=== PATIENT | female | born 1970 | race African-American/Black ===

== ENCOUNTER → 2016-09-11 | Outpatient (CLI) | payer MEDICAID ==
[2016-09-11 08:55] LABS: ABSOLUTE EOSINOPHILS # (AUTO) 0.1 10^3/uL (0.0-0.6); ABSOLUTE LYMPHOCYTES (AUTO) 1.5 10^3/uL (0.5-4.7); ABSOLUTE MONOCYTES (AUTO) 0.2 10^3/uL (0.1-1.4); ABSOLUTE NEUT (AUTO) 2.6 10^3/uL (1.7-8.2); BASOPHILS % (AUTO) 0.7 % (0-2); EOSINOPHILS % (AUTO) 2.7 % (0-6); HEMATOCRIT 40.2 % (36.0-47.0); HEMOGLOBIN 14.2 g/dL (12.0-15.5); HGB HCT DIFFERENCE 2.4; LYMPHOCYTES % (AUTO) 33.5 % (13-45); MEAN CORPUSCULAR HEMOGLOBIN 27.6 pg (27.0-33.4); MEAN CORPUSCULAR HGB CONC 35.3 g/dL (32.0-36.0); MEAN CORPUSCULAR VOLUME 78 fl (80-97); MONOCYTES % (AUTO) 5.1 % (3-13); RED BLOOD COUNT 5.15 10^6/uL (3.72-5.28); RED CELL DISTRIBUTION WIDTH 13.7 % (11.5-14.0); WHITE BLOOD COUNT 4.6 10^3/uL (4.0-10.5)
[2016-09-11 09:23] LABS: ALANINE AMINOTRANSFERASE 33 U/L (9-52); ALBUMIN 4.6 g/dL (3.5-5.0); ALKALINE PHOSPHATASE 70 U/L (38-126); ANION GAP 13 (5-19); ASPARTATE AMINO TRANSFERASE 23 U/L (14-36); BILIRUBIN,TOTAL 0.9 mg/dL (0.2-1.3); BLOOD UREA NITROGEN 12 mg/dL (7-20); CARBON DIOXIDE 25 mmol/L (22-30); CHLORIDE 102 mmol/L (98-107); CHOLESTEROL 214.56 mg/dL (0-200); CREATININE RESULT 0.72 mg/dL (0.52-1.25); Direct HDL 58 mg/dL (>40); GLUCOSE 146 mg/dL (75-110); POTASSIUM 4.7 mmol/L (3.6-5.0); SODIUM 140.1 mmol/L (137-145); TOTAL PROTEIN 7.5 g/dL (6.3-8.2); TRIGLYCERIDES 50 mg/dL (<150)
[2016-09-11 09:34] LABS: DIRECT LDL 140 mg/dL (<100)
== END ==
LOC: OD 08:14
DX: Z79.899 Other long term (current) drug therapy (principal)
CPT/HCPCS: 36415; 80053; 80061; 83036; 84443; 85025

== ENCOUNTER → 2016-10-26 | Outpatient (CLI) | payer MEDICAID | LOC: WI 08:41 | DX: Z12.31 Encounter for screening mammogram for malignant neoplasm of breast (principal) | CPT/HCPCS: 77063; G0202; 77067 ==

== ENCOUNTER 2017-05-20 10:28 | Inpatient (IN) | payer MEDICAID ==
[2017-05-20] MEDS ORDERED: NORMAL SALINE 1000 ML 1,000 ML IV ONE (11:12)
--- NOTE | 2017-05-20 11:15 | ER Document Report ---
ED Medical Screen (RME) - General Chief Complaint: Doesn't Feel Right Stated Complaint: CONFUSION Time Seen by Provider: 05/20/17 11:11 Mode of Arrival: Wheelchair Information source: Patient, Relative TRAVEL OUTSIDE OF THE [place] IN LAST 30 DAYS: No - HPI Patient complains to provider of: confusion, h/o sepsis Onset: Yesterday - relative says pt. was seen here last year for similar sx's ( confusion) and then was found to be septic and transferred to [facility]. Denies fever - Related Data Allergies/Adverse Reactions: No Known Allergies Allergy (Verified 05/20/17 10:40) Past Medical History - Past Medical History Cardiac Medical History: Reports: Hx Hypertension Endocrine Medical History: Reports: Hx Diabetes Mellitus Type 2 Renal/ Medical History: Denies: Hx Peritoneal Dialysis Past Surgical History: Reports: Hx Hysterectomy Physical Exam - Vital signs Vitals: Temp Pulse Resp BP Pulse Ox 98.6 F 89 20 183/95 H 99 05/20/17 10:40 05/20/17 10:40 05/20/17 10:40 05/20/17 10:40 05/20/17 10:40 Course - Vital Signs Vital signs: Temp Pulse Resp BP Pulse Ox 98.6 F 89 20 183/95 H 99 05/20/17 10:40 05/20/17 10:40 05/20/17 10:40 05/20/17 10:40 05/20/17 10:40
--- NOTE | 2017-05-20 11:49 | RADIOLOGY REPORT (SQ) ---
EXAM DESCRIPTION: CT HEAD WITHOUT COMPLETED DATE/TIME: 05/20/2017 11:38 am REASON FOR STUDY: confusion COMPARISON: None. TECHNIQUE: Axial images acquired through the brain without intravenous contrast. Images reviewed wi th bone, brain and subdural windows. Images stored on PACS. All CT scanners at this facility use dose modulation, iterative reconstruction, and/or weight based d osing when appropriate to reduce radiation dose to as low as reasonably achievable (ALARA). [facility]: Dose Right [facility]: CareDose [facility]: Dose Right [facility]: Teradose 4D [facility]: [employer] RADIATION DOSE: Up-to-date CT equipment and radiation dose reduction techniques were employed. CTDIv ol: 64.6 mGy. DLP: 1292 mGy-cm. mGy. LIMITATIONS: None. FINDINGS: VENTRICLES: Normal size and contour. CEREBRUM: No masses. No hemorrhage. No midline shift. No evidence for acute infarction. Normal gra y/white matter differentiation. No areas of low density in the white matter. CEREBELLUM: No masses. No hemorrhage. No alteration of density. No evidence for acute infarction. EXTRAAXIAL SPACES: No fluid collections. No masses. ORBITS AND GLOBE: No intra- or extraconal masses. Normal contour of globe without masses. CALVARIUM: No fracture. PARANASAL SINUSES: No fluid or mucosal thickening. SOFT TISSUES: No mass or hematoma. OTHER: No other significant finding. IMPRESSION: NORMAL BRAIN CT WITHOUT CONTRAST. EVIDENCE OF ACUTE STROKE: NO. COMMENT: Quality ID # [id number]: Final reports with documentation of one or more dose reduction techniques (e.g., Automated exposure control, adjustment of the mA and/or kV according to patient size, use of iterative reconstruction technique) TECHNICAL DOCUMENTATION: JOB ID: [id number] [employer]- All Rights Reserved
--- NOTE | 2017-05-20 11:55 | RADIOLOGY REPORT (SQ) ---
EXAM DESCRIPTION: CHEST PA/LAT COMPLETED DATE/TIME: 05/20/2017 11:45 am REASON FOR STUDY: confusion COMPARISON: 04/09/2016 EXAM PARAMETERS: NUMBER OF VIEWS: two views TECHNIQUE: Digital Frontal and Lateral radiographic views of the chest acquired. RADIATION DOSE: NA LIMITATIONS: none FINDINGS: LUNGS AND PLEURA: No opacities, masses or pneumothorax. No pleural effusion. MEDIASTINUM AND HILAR STRUCTURES: No masses or contour abnormalities. HEART AND VASCULAR STRUCTURES: Heart normal size. No evidence for failure. BONES: No acute findings. HARDWARE: None in the chest. OTHER: No other significant finding. IMPRESSION: NO SIGNIFICANT RADIOGRAPHIC FINDING IN THE CHEST. TECHNICAL DOCUMENTATION: JOB ID: [id number] [employer]- All Rights Reserved
[2017-05-20 12:33] LABS: APPEARANCE,URINE CLEAR; BILIRUBIN,URINE NEGATIVE (NEGATIVE); GLUCOSE, URINE >=500 mg/dL (NEGATIVE); KETONES,URINE 80 mg/dL (NEGATIVE); LEUKOCYTE ESTERASE,URINE NEGATIVE (NEGATIVE); NITRITE,URINE NEGATIVE (NEGATIVE); PROTEIN,URINE NEGATIVE (NEGATIVE); URINE SPECIFIC GRAVITY 1.026; UROBILINOGEN,URINE NEGATIVE mg/dL (<2.0)
--- NOTE | 2017-05-20 12:54 | ER Document Report ---
ED General - General Chief Complaint: Doesn't Feel Right Stated Complaint: CONFUSION Time Seen by Provider: 05/20/17 11:11 Mode of Arrival: Wheelchair Notes: Patient is here because of changes in her mental function over the past couple of days. Patient says is because she did not take her 6 AM dose of amlodipine and forgot to take it today because she was too busy. Patient says her daughter say that she is "out of it". Patient says her symptoms began today, but the daughter says that she actually started exhibiting these findings a couple of days ago, on Tuesday morning. They say that her conversation is not normal. That she takes a couple of minutes patient denies any headache or loss of consciousness. Her vision has been normal. No headache. Denies any fever. Daughter stated was observed her hands shaking when drinking liquids this morning. Patient's daughters are concerned because they say that she had the same symptoms a year ago and was diagnosed as having pneumonia with sepsis and was transferred from here to [facility] for her care. Patient denies any chest pain, shortness of breath or difficulty breathing, headache, visual changes, etc. Denies nausea, vomiting, or diarrhea. Denies shortness of breath or difficulty breathing. Denies fevers. Patient has a history of insulin-dependent diabetes and takes her medications., But did not take her amlodipine for hypertension this morning. 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 Patient has a small abrasion over the knuckle of her right index finger, PIP joint without significant swelling or deformity. Patient says she fell and last night. She says that she fell the night before and bruised her upper mid forehead. Neither she nor her daughter say that she is having any problems with her balance. TRAVEL OUTSIDE OF THE [place] IN LAST 30 DAYS: No - Related Data Allergies/Adverse Reactions: No Known Allergies Allergy (Verified 05/20/17 10:40) Past Medical History - General Information source: Patient, Relative - Social History Smoking Status: Never Smoker Chew tobacco use (# tins/day): No Frequency of alcohol use: None Drug Abuse: None Family History: Reviewed & Not Pertinent, DM Patient has suicidal ideation: No Patient has homicidal ideation: No - Past Medical History Cardiac Medical History: Reports: Hx Hypertension Endocrine Medical History: Reports: Hx Diabetes Mellitus Type 1, Hx Diabetes Mellitus Type 2 Past Surgical History: Reports: Hx Hysterectomy Review of Systems - Review of Systems Notes: REVIEW OF SYSTEMS: CONSTITUTIONAL : Denies fever. Head shakes this morning, like fine tremor as described by daughters. EENT: Denies eye, ear, nose or mouth or throat pain or other symptoms. CARDIOVASCULAR: Denies chest pain. RESPIRATORY: Denies cough, chest congestion, or shortness of breath. GASTROINTESTINAL: Denies abdominal pain or nausea, vomiting, or diarrhea. GENITOURINARY: Denies difficulty or painful urinating, urinary frequency, blood in urine. MUSCULOSKELETAL: Denies back or neck pain. Denies joint pain or swelling. SKIN: Denies rash or skin lesions. NEUROLOGICAL: Denies LOC. Has fallen twice, each of the last 2 nights. Denies headache. Denies sensory loss or motor deficits. ALL OTHER SYSTEMS REVIEWED AND NEGATIVE. Physical Exam - Vital signs Vitals: Temp Pulse Resp BP Pulse Ox 98.6 F 89 20 183/95 H 99 05/20/17 10:40 05/20/17 10:40 05/20/17 10:40 05/20/17 10:40 05/20/17 10:40 Interpretation: Hypertensive - Notes Notes: PHYSICAL EXAMINATION: GENERAL: Well-appearing, in no acute distress. Blood pressure 183/95 in triage. HEAD: Atraumatic, normocephalic. Very slight puffiness with possible bruise to the upper midline forehead. EYES: Pupils equal round and reactive to light, extraocular movements intact. ENT: oropharynx clear without exudates. Moist mucous membranes. NECK: Normal range of motion, supple. No carotid bruits heard. LUNGS: Breath sounds clear and equal bilaterally. HEART: Regular rate and rhythm without murmurs. ABDOMEN: Soft, nontender. No guarding or rebound. BACK: No tenderness throughout entire back. EXTREMITIES: Normal range of motion without pain. Abrasion of skin off of the dorsal knuckle of the PIP joint of the right index finger. Full range of motion without difficulty. No significant soft tissue swelling. NEUROLOGICAL: Normal speech, although on a couple of occasions, the patient seems to delay answering by a second or 2, as if she is having to think about her answer. normal gait. Normal sensory, motor, and reflex exams. Awake, alert, and oriented x3. Cranial nerves normal. PSYCH: Normal mood, normal affect. SKIN: Warm, dry, no rashes. Course - Vital Signs Vital signs: Temp Pulse Resp BP Pulse Ox 98.5 F 72 20 187/89 H 100 05/20/17 13:13 05/20/17 13:13 05/20/17 10:40 05/20/17 13:13 05/20/17 13:13 - Laboratory Result Diagrams: 05/20/17 12:35 05/20/17 12:35 Laboratory results interpreted by me: 05/20/17 05/20/17 05/20/17 12:11 12:35 12:35 MCV 79 L Sodium 145.8 H Potassium 3.5 L Glucose 191 H AST 56 H ALT 54 H Creatine Kinase 1494 H CK-MB (CK-2) Urine Glucose (UA) >=500 H Urine Ketones 80 H 05/20/17 12:35 MCV Sodium Potassium Glucose AST ALT Creatine Kinase CK-MB (CK-2) 9.62 H Urine Glucose (UA) Urine Ketones Discharge - Discharge Clinical Impression: Altered mental status, Elevated CPK Condition: Stable Disposition: ADMITTED OBSERVATION Admitting Provider: Hospitalist Unit Admitted: Telemetry
[2017-05-20 12:57] LABS: ABSOLUTE LYMPHOCYTES (AUTO) 1.5 10^3/uL (0.5-4.7); ABSOLUTE MONOCYTES (AUTO) 0.3 10^3/uL (0.1-1.4); ABSOLUTE NEUT (AUTO) 5.6 10^3/uL (1.7-8.2); BASOPHILS % (AUTO) 0.5 % (0-2); EOSINOPHILS % (AUTO) 0.2 % (0-6); HEMOGLOBIN 14.3 g/dL (12.0-15.5); HGB HCT DIFFERENCE 2.9; LYMPHOCYTES % (AUTO) 19.6 % (13-45); MEAN CORPUSCULAR HEMOGLOBIN 28.3 pg (27.0-33.4); MEAN CORPUSCULAR HGB CONC 35.6 g/dL (32.0-36.0); MEAN CORPUSCULAR VOLUME 79 fl (80-97); MONOCYTES % (AUTO) 3.7 % (3-13); RED BLOOD COUNT 5.04 10^6/uL (3.72-5.28); RED CELL DISTRIBUTION WIDTH 13.7 % (11.5-14.0); WHITE BLOOD COUNT 7.4 10^3/uL (4.0-10.5)
[2017-05-20] MEDS ORDERED: AMLODIPINE BESYLATE 10 MG TABLET PO ONE (13:14)
[2017-05-20 13:18] LABS: ALANINE AMINOTRANSFERASE 54 U/L (9-52); ALBUMIN 4.8 g/dL (3.5-5.0); ALKALINE PHOSPHATASE 74 U/L (38-126); ANION GAP 15 (5-19); ASPARTATE AMINO TRANSFERASE 56 U/L (14-36); BILIRUBIN,DIRECT 0.4 mg/dL (0.0-0.4); BILIRUBIN,TOTAL 0.9 mg/dL (0.2-1.3); BLOOD UREA NITROGEN 8 mg/dL (7-20); CALCIUM 9.8 mg/dL (8.4-10.2); CARBON DIOXIDE 25 mmol/L (22-30); CHLORIDE 106 mmol/L (98-107); CREATINE KINASE 1494 U/L (30-135); CREATININE RESULT 0.58 mg/dL (0.52-1.25); GLUCOSE 191 mg/dL (75-110); POTASSIUM 3.5 mmol/L (3.6-5.0); SODIUM 145.8 mmol/L (137-145); TOTAL PROTEIN 7.7 g/dL (6.3-8.2)
[2017-05-20 13:29] LABS: CREATINE KINASE MB 9.62 ng/mL (<4.55)
[2017-05-20 13:30] LABS: TROPONIN I < 0.012 ng/mL
[2017-05-20] MEDS ORDERED: LORAZEPAM INJ 2 MG/1 ML VIAL IV PRN (15:56)
[2017-05-20] MEDS ORDERED: NORMAL SALINE 1000 ML 1,000 ML IV PRN (16:09)
[2017-05-20] MEDS ORDERED: HYDRALAZINE HCL INJ/PF 20 MG/1 ML SDV IV ONE (17:00)
[2017-05-20 17:23] LABS: FREE T3 3.96 pg/mL (2.77-5.27)
[2017-05-20 17:37] LABS: THYROID STIMULATING HORMONE 0.87 uIU/mL (0.47-4.68)
[2017-05-20 17:45] LABS: ADD HIVPANEL? NO; HIV (1 AND 2) ANTIBODY NEGATIVE (NEGATIVE)
[2017-05-20 18:21] LABS: FOLATE > 20.00 ng/mL (>2.76)
[2017-05-20 18:56] LABS: URINE BARBITURATES SCREEN NEGATIVE; URINE METHADONE SCREEN NEGATIVE; URINE OPIATES LOW NEGATIVE; URINE PHENCYCLIDINE SCREEN NEGATIVE
--- NOTE | 2017-05-20 19:13 | RADIOLOGY REPORT (SQ) ---
EXAM DESCRIPTION: MRI HEAD COMBO COMPLETED DATE/TIME: 05/20/2017 6:57 pm REASON FOR STUDY: ams COMPARISON: Correlation made to CT head from 05/20/2017 TECHNIQUE: Multiplanar imaging includes noncontrasted T1, T2, FLAIR, diffusion with ADC map and post gadolinium contrast T1 sequences. Images stored on PACS. CONTRAST TYPE AND DOSE: 10 mL Multihance. RENAL FUNCTION: GFR > 60. LIMITATIONS: None. FINDINGS: ANATOMY: No anomalies. Normal vascular flow voids. Pituitary fossa normal. CSF SPACES: Normal in size and contour. No hemorrhage. CEREBRUM: Sulci and gyri normal in size and contour. Extensive abnormal white signal on FLAIR imagin g with linear hyperintense signal involving the periventricular white matter. No evidence of hemorrha ge, mass, or extraaxial fluid collection. No abnormal enhancement post contrast. POSTERIOR FOSSA: No signal alteration. No hemorrhage. No edema, masses, or mass effect. Internal rusty tory canals, cerebellopontine angles, mastoids normal. No enhancing lesions. No abnormal enhancement post contrast. DIFFUSION IMAGING: Negative for acute or subacute infarction. ORBITS: No masses. Globes normal. PARANASAL SINUSES: No fluid levels. Mucosa normal. OTHER: No other significant finding. IMPRESSION: NO ACUTE ISCHEMIA, HEMORRHAGE, OR ENHANCING LESIONS IDENTIFIED. EXTENSIVE ABNORMAL WHIT E MATTER DISEASE GREATER THAN EXPECTED FOR AGE WITH LINEAR HYPERINTENSE SIGNAL INVOLVING THE PERIVENT RICULAR WHITE MATTER SUGGESTIVE OF A DEMYELINATING PROCESS SUCH MULTIPLE SCLEROSIS. CORRELATE WIT H CLINICAL HISTORY AND PRIOR IMAGING IF AVAILABLE. EVIDENCE OF ACUTE STROKE: NO. TECHNICAL DOCUMENTATION: JOB ID: [id number]- All Rights Reserved
[2017-05-20] MEDS: HYDRALAZINE HCL INJ/PF 20 MG/1 ML SDV IV PRN (21:37)
[2017-05-20] MEDS ORDERED: HALOPERIDOL LACTATE INJ 5 MG/1 ML VIAL IV ONE (23:24)
[2017-05-20] MEDS ORDERED: GLUCAGON,HUMAN RECOMB 1 MG INJ IM PRN (23:25)
[2017-05-20] MEDS ORDERED: DEXTROSE 40% GEL 15 GM TUBE PO PRN ×2 (23:25)
[2017-05-20] MEDS ORDERED: DEXTROSE 50%-WATER 25 GM/50 ML DISP.SYRIN IV PRN ×2 (23:25)
[2017-05-20] MEDS ORDERED: LORAZEPAM INJ 2 MG/1 ML VIAL IV ONE (23:27)
[2017-05-20] MEDS ORDERED: DIPHENHYDRAMINE HCL 50 MG/ML VIAL IV ONE (23:28)
[2017-05-20] MEDS ORDERED: HALOPERIDOL LACTATE INJ 5 MG/1 ML VIAL ONE (23:28)
[2017-05-20] MEDS ORDERED: DIPHENHYDRAMINE HCL 50 MG/ML VIAL ONE (23:32)
[2017-05-21] MEDS ORDERED: HALOPERIDOL LACTATE INJ 5 MG/1 ML VIAL IV ONE (04:00)
[2017-05-21] MEDS: NORMAL SALINE 1000 ML 1,000 ML IV PRN ×3 (04:38→18:59)
[2017-05-21] MEDS ORDERED: METHYLPREDNISOLONE INJ 1000 MG VIAL IV SCH (06:00)
--- NOTE | 2017-05-21 06:26 | PDOC H&P ---
History of Present Illness Admission Date/PCP: 05/20/17 15:49 ERKIA KRUSE MD Patient complains of: Not acting herself History of Present Illness: MYRA RIVAS is a 46 year old female brought in by her daughter who is currently not at the bedside. Per the patient she states her daughter told her that she is not acting like herself. Patient also stated she has not been to work in the last several days because she just was not feeling right. Patient works at school with kindergartners and first graders. Patient denies any cough fever runny nose neck pain headache. Patient has a bruise on her right index finger which she states she just does not know how it happened. Patient also states she has a bump on her forehead which she does not know where that came from. Patient denies falling or hurting herself. Unfortunately patient had a similar presentation over a year ago for which she was transferred to [facility]. The difference at that time was that she was febrile. Patient is afebrile, without leukocytosis or any obvious signs of infection. In the ED patient was found sitting up in the bed in no acute distress. CT head was normal MRI brain is pending. Lab work is essentially negative with mild elevation in CPK. Past Medical History Cardiac Medical History: Reports: Hypertension Pulmonary Medical History: Reports: None EENT Medical History: Reports: None Neurological Medical History: Reports: Other - Encephalitis Endocrine Medical History: Reports: Diabetes Mellitus Type 1, Diabetes Mellitus Type 2 Renal/ Medical History: Reports: None Malignancy Medical History: Reports: None GI Medical History: Reports: None Musculoskeltal Medical History: Reports: None Skin Medical History: Reports: None Psychiatric Medical History: Reports: None Denies: Depression Traumatic Medical History: Reports: None Hematology: Reports: None Infectious Medical History: Reports: None Past Surgical History Past Surgical History: Reports: Hysterectomy Social History Information Source: Patient Smoking Status: Never Smoker Frequency of Alcohol Use: None Hx Recreational Drug Use: No Drugs: None Hx Prescription Drug Abuse: No - Advance Directive Resuscitation Status: Full Code Family History Family History: DM, Hypertension Parental Family History Reviewed: No Children Family History Reviewed: No Sibling(s) Family History Reviewed.: No Medication/Allergy Home Medications: Amlodipine Besylate [Norvasc 10 mg Tablet] 10 mg PO DAILY 05/20/17 Insulin Glargine,Hum.rec.anlog [Lantus Solostar] 50 units SQ DAILY 05/20/17 Allergies/Adverse Reactions: No Known Allergies Allergy (Verified 05/20/17 10:40) Review of Systems ROS unobtainable: Due to mental status Physical Exam Vital Signs: Temp Pulse Resp BP Pulse Ox 99.3 F 109 H 17 150/87 H 100 05/21/17 03:00 05/21/17 03:00 05/21/17 03:00 05/21/17 03:00 05/21/17 03:00 Intake & Output 05/19/17 05/20/17 05/21/17 06:59 06:59 06:59 Intake Total 1600 Balance 1600 Weight 65.3 kg General appearance: PRESENT: no acute distress, well-developed, well-nourished Head exam: PRESENT: atraumatic, normocephalic Eye exam: PRESENT: EOMI, PERRLA. ABSENT: scleral icterus Ear exam: PRESENT: normal external ear exam Mouth exam: PRESENT: moist, tongue midline Neck exam: ABSENT: carotid bruit, JVD, lymphadenopathy, thyromegaly Respiratory exam: PRESENT: clear to auscultation donald. ABSENT: rales, rhonchi, wheezes Cardiovascular exam: PRESENT: RRR. ABSENT: diastolic murmur, rubs, systolic murmur Pulses: PRESENT: normal dorsalis pedis pul Vascular exam: PRESENT: normal capillary refill GI/Abdominal exam: PRESENT: normal bowel sounds, soft. ABSENT: distended, guarding, mass, organolmegaly, rebound, tenderness Rectal exam: PRESENT: deferred Extremities exam: PRESENT: full ROM. ABSENT: calf tenderness, clubbing, pedal edema Neurological exam: PRESENT: alert, awake, oriented to person, oriented to place , oriented to time, oriented to situation, CN II-XII grossly intact. ABSENT: motor sensory deficit Psychiatric exam: PRESENT: flat affect. ABSENT: homicidal ideation, suicidal ideation Skin exam: PRESENT: dry, intact, warm. ABSENT: cyanosis, rash Results Laboratory Results: 05/20/17 18:07 Ammonia < 8.7 L Impressions: Head MRI 05/20/17 00:00 IMPRESSION: NO ACUTE ISCHEMIA, HEMORRHAGE, OR ENHANCING LESIONS IDENTIFIED. EXTENSIVE ABNORMAL WHITE MATTER DISEASE GREATER THAN EXPECTED FOR AGE WITH LINEAR HYPERINTENSE SIGNAL INVOLVING THE PERIVENTRICULAR WHITE MATTER SUGGESTIVE OF A DEMYELINATING PROCESS SUCH MULTIPLE SCLEROSIS. CORRELATE WITH CLINICAL HISTORY AND PRIOR IMAGING IF AVAILABLE. EVIDENCE OF ACUTE STROKE: NO. Chest X-Ray 05/20/17 11:11 IMPRESSION: NO SIGNIFICANT RADIOGRAPHIC FINDING IN THE CHEST. Head CT 05/20/17 11:12 IMPRESSION: NORMAL BRAIN CT WITHOUT CONTRAST. EVIDENCE OF ACUTE STROKE: NO. Assessment & Plan - Diagnosis (1) Metabolic encephalopathy Is this a current diagnosis for this admission?: Yes Plan: Her reports from the family patient is not herself. On evaluating patient, she has a flat affect monotone poor eye contact. She does answer questions appropriately but appears to be delayed in her responses. Patient does not appear infected there is no fever cough runny nose. There is no leukocytosis. Will check a UDS will check ammonia level will check HIV. Will order EEG for possible seizure. Will check MRI. Apparently patient had a event like this in the past. She was transferred divided at that time. Patient may require transfer her patient appears stable and will be monitored overnight if no improvement or workup is unrevealing will transfer for further evaluation by neurology. (2) Type 2 diabetes mellitus Qualifiers: Diabetes mellitus complication status: with circulatory complication Is this a current diagnosis for this admission?: Yes Plan: Start patient on sliding scale insulin. (3) Hypertension Is this a current diagnosis for this admission?: Yes Plan: The patient was started on Norvasc. Will resume this medication once dose is known. In the meantime will have patient on as needed hydralazine. - Time Time Spent: 30 to 50 Minutes Anticipated discharge: [facility]: when bed available - Inpatient Certification Medical Necessity: Need for Neurological Checks
[2017-05-21 08:30] LABS: APPEARANCE,URINE SLIGHTLY-CLOUDY; BILIRUBIN,URINE NEGATIVE (NEGATIVE); GLUCOSE, URINE 150 mg/dL (NEGATIVE); KETONES,URINE 80 mg/dL (NEGATIVE); LEUKOCYTE ESTERASE,URINE TRACE (NEGATIVE); NITRITE,URINE NEGATIVE (NEGATIVE); PROTEIN,URINE NEGATIVE (NEGATIVE); URINE SPECIFIC GRAVITY 1.018; UROBILINOGEN,URINE NEGATIVE mg/dL (<2.0)
--- NOTE | 2017-05-21 08:47 | RADIOLOGY REPORT (SQ) ---
EXAM DESCRIPTION: CHEST PA/LAT COMPLETED DATE/TIME: 05/21/2017 8:11 am REASON FOR STUDY: fever, ams COMPARISON: Two-view chest 05/20/2017, 01/06/2016 EXAM PARAMETERS: NUMBER OF VIEWS: two views TECHNIQUE: Digital Frontal and Lateral radiographic views of the chest acquired. RADIATION DOSE: NA LIMITATIONS: none FINDINGS: LUNGS AND PLEURA: No opacities, masses or pneumothorax. No pleural effusion. MEDIASTINUM AND HILAR STRUCTURES: No masses or contour abnormalities. HEART AND VASCULAR STRUCTURES: Heart normal size. No evidence for failure. BONES: No acute findings. HARDWARE: None in the chest. OTHER: No other significant finding. IMPRESSION: NO SIGNIFICANT RADIOGRAPHIC FINDING IN THE CHEST. TECHNICAL DOCUMENTATION: JOB ID: [id number] [employer]- All Rights Reserved
[2017-05-21] MEDS ORDERED: METHYLPREDNISOLONE SOD SUCC 1,000 MG in DEXTROSE 5%-WATER 100 ML IV SCH (10:00)
[2017-05-21] MEDS: METHYLPREDNISOLONE SOD SUCC 1,000 MG in DEXTROSE 5%-WATER 100 ML IV SCH (10:48)
[2017-05-21] MEDS: PANTOPRAZOLE SODIUM 40 MG VIAL IV SCH ×2 (10:48→21:52)
[2017-05-21] MEDS: INSULIN LISPRO 100 UNIT/ML 3 ML VIAL SUBCUT PRN ×3 (12:24→23:36)
[2017-05-21] MEDS: HYDRALAZINE HCL INJ/PF 20 MG/1 ML SDV IV PRN (17:07)
[2017-05-22] MEDS: INSULIN LISPRO 100 UNIT/ML 3 ML VIAL SUBCUT PRN (08:23)
[2017-05-22] MEDS ORDERED: LOSARTAN POTASSIUM 25 MG TABLET PO SCH (10:00)
[2017-05-22] MEDS ORDERED: INSULIN GLARGINE,HUM.REC.ANLOG 1,000 UNIT/10 ML UNIT SUBCUT SCH (10:00)
[2017-05-22] MEDS: PANTOPRAZOLE SODIUM 40 MG VIAL IV SCH ×2 (10:43→22:16)
[2017-05-22] MEDS: METHYLPREDNISOLONE SOD SUCC 1,000 MG in DEXTROSE 5%-WATER 100 ML IV SCH (10:44)
[2017-05-22] MEDS ORDERED: INSULIN GLARGINE,HUM.REC.ANLOG 300 UNIT/3 ML INSULN.PEN SUBCUT ONE (11:00)
[2017-05-22] MEDS: INSULIN LISPRO 100 UNIT/ML 3 ML VIAL SUBCUT SCH ×3 (11:27→22:15)
[2017-05-22] MEDS ORDERED: LOSARTAN POTASSIUM 25 MG TABLET PO ONE (11:30)
[2017-05-22] MEDS: NORMAL SALINE 1000 ML 1,000 ML IV PRN ×2 (16:57→17:46)
[2017-05-22] MEDS ORDERED: HYDRALAZINE HCL INJ/PF 20 MG/1 ML SDV IV ONE (17:04)
[2017-05-22] MEDS ORDERED: INSULIN GLARGINE,HUM.REC.ANLOG 300 UNIT/3 ML INSULN.PEN SUBCUT SCH (22:00)
[2017-05-22] MEDS: INSULIN GLARGINE,HUM.REC.ANLOG 300 UNIT/3 ML INSULN.PEN SUBCUT SCH (22:15)
[2017-05-23] MEDS: NORMAL SALINE 1000 ML 1,000 ML IV PRN (05:19)
[2017-05-23 06:27] LABS: PARTIAL THROMBOPLASTIN TIME 25.6 SEC (23.5-35.8); PROTHROMBIN TIME 13.1 SEC (11.4-15.4)
[2017-05-23] MEDS: INSULIN LISPRO 100 UNIT/ML 3 ML VIAL SUBCUT SCH ×4 (07:25→23:51)
[2017-05-23 09:45] LABS: APPEARANCE ALL TUBES CLEAR
[2017-05-23] MEDS: PANTOPRAZOLE SODIUM 40 MG VIAL IV SCH (10:02)
[2017-05-23] MEDS: INSULIN GLARGINE,HUM.REC.ANLOG 300 UNIT/3 ML INSULN.PEN SUBCUT SCH (10:04)
[2017-05-23] MEDS: HYDRALAZINE HCL INJ/PF 20 MG/1 ML SDV IV PRN (10:05)
[2017-05-23] MEDS: METHYLPREDNISOLONE SOD SUCC 1,000 MG in DEXTROSE 5%-WATER 100 ML IV SCH (10:05)
--- NOTE | 2017-05-23 10:05 | RADIOLOGY REPORT (SQ) ---
EXAM DESCRIPTION: LUMBAR PUNCTURE; FLUORO/NEEDLE PLACEMENT/SPINE COMPLETED DATE/TIME: 05/23/2017 9:35 am REASON FOR STUDY: ? Demyelinating disease COMPARISON: MRI brain 05/20/2017 FLUOROSCOPY TIME: 16 seconds 1 radiographic digital image saved to PACS. TECHNIQUE: Fluoroscopic guided lumbar puncture. LIMITATIONS: None. PROCEDURE: After written consent and assessment were obtained, the patient was brought into the fluo roscopy room and placed prone on the table. The patient's lower back was prepped in a sterile fashio n and an entry site was selected under live fluoroscopic guidance. The entry site was anesthetized wi th 4.5 mL of 1% lidocaine. A 22 gauge spinal needle was advanced through the skin and into the thecal sac at the left paracentral L3-4 level. After approximately 8 ml was drained, the needle was remove d and a sterile bandage was placed of the site. Specimens were sent to the lab for testing. A fluor oscopic spot image was saved to PACS confirming level access. Opening pressure 20 cm of water FINDINGS: Clear CSF IMPRESSION: Lumbar puncture under fluoroscopy. No immediate complication. COMMENT: Patient medication list reviewed: Yes- Quality ID# [id number]:Eligible professional attests to doc umenting in the medical record they obtained, updated, or reviewed the patient's current medications. . Quality ID [id number]: Final reports for procedures using fluoroscopy that document radiation exposure guerline jenny, or exposure time and number of fluorographic images (if radiation exposure indices are not avail able) TECHNICAL DOCUMENTATION: JOB ID: [id number] [employer]- All Rights Reserved
[2017-05-23 10:12] LABS: RBC DILUENT USED NONE USED; RBC DILUTION FACTOR 1; RBC SIDE 1 4; RBC SIDE 2 4; TOTAL RBC SQUARES COUNTED 225; WHITE BLOOD CELL,CSF 2 /uL (0-5)
[2017-05-23 10:18] LABS: GLUCOSE,CSF 98 mg/dL (40-70)
[2017-05-23] MEDS: LOSARTAN POTASSIUM 25 MG TABLET PO SCH (12:21)
[2017-05-23] MEDS ORDERED: AMLODIPINE BESYLATE 10 MG TABLET PO ONE (17:00)
[2017-05-23] MEDS ORDERED: INSULIN LISPRO 100 UNIT/ML 3 ML VIAL SUBCUT ONE (19:45)
[2017-05-24] MEDS: PANTOPRAZOLE SODIUM 40 MG VIAL IV SCH (00:12)
[2017-05-24] MEDS: INSULIN GLARGINE,HUM.REC.ANLOG 300 UNIT/3 ML INSULN.PEN SUBCUT SCH ×3 (00:12→22:51)
[2017-05-24] MEDS: HYDRALAZINE HCL INJ/PF 20 MG/1 ML SDV IV PRN (04:10)
[2017-05-24] MEDS: LOSARTAN POTASSIUM 25 MG TABLET PO SCH (09:11)
[2017-05-24] MEDS: INSULIN LISPRO 100 UNIT/ML 3 ML VIAL SUBCUT SCH ×6 (09:11→22:51)
[2017-05-24] MEDS: AMLODIPINE BESYLATE 10 MG TABLET PO SCH (09:12)
[2017-05-24] MEDS ORDERED: LOSARTAN POTASSIUM 25 MG TABLET PO SCH (09:53)
[2017-05-24] MEDS ORDERED: AMLODIPINE BESYLATE 5 MG TABLET PO SCH (10:00)
[2017-05-24] MEDS ORDERED: AMLODIPINE BESYLATE 10 MG TABLET PO SCH (10:00)
[2017-05-24] MEDS: METHYLPREDNISOLONE SOD SUCC 1,000 MG in DEXTROSE 5%-WATER 100 ML IV SCH (11:23)
[2017-05-25] MEDS ORDERED: METHYLPREDNISOLONE INJ 1000 MG VIAL IV ONE (06:00)
[2017-05-25] MEDS ORDERED: METHYLPREDNISOLONE SOD SUCC 1,000 MG in DEXTROSE 5%-WATER 100 ML IV ONE (06:00)
--- NOTE | 2017-05-25 08:37 | PDOC PROGRESS REPORT ---
Subjective Progress Note for:: 05/21/17 Subjective:: Patient 46 female presenting with bizzare behavior. She was brought to the ED by her daughter. Patient very agitated overnight. Patient started on high dose pulse steroids of 1gram daily x 5 days for possible MS. MRI shows periventricular changes consistent with MS. Patient seems better after being started on steroids. She states she feels fine. Physical Exam Vital Signs: Temperature 99.3 pulse 84 bp 162/84 RR 15 sat 94 General appearance: PRESENT: no acute distress, well-developed, well-nourished Head exam: PRESENT: atraumatic, normocephalic Eye exam: PRESENT: conjunctiva pink, EOMI, PERRLA. ABSENT: scleral icterus Ear exam: PRESENT: normal external ear exam Mouth exam: PRESENT: moist, tongue midline Neck exam: ABSENT: carotid bruit, JVD, lymphadenopathy, thyromegaly Respiratory exam: PRESENT: clear to auscultation donald. ABSENT: rales, rhonchi, wheezes Cardiovascular exam: PRESENT: RRR. ABSENT: diastolic murmur, rubs, systolic murmur Pulses: PRESENT: normal dorsalis pedis pul Vascular exam: PRESENT: normal capillary refill GI/Abdominal exam: PRESENT: normal bowel sounds, soft. ABSENT: distended, guarding, mass, organolmegaly, rebound, tenderness Rectal exam: PRESENT: deferred Extremities exam: PRESENT: full ROM. ABSENT: calf tenderness, clubbing, pedal edema Neurological exam: PRESENT: alert, awake, oriented to person, oriented to place , oriented to time, oriented to situation, CN II-XII grossly intact. ABSENT: motor sensory deficit Psychiatric exam: PRESENT: appropriate affect, normal mood. ABSENT: homicidal ideation, suicidal ideation Skin exam: PRESENT: dry, intact, warm. ABSENT: cyanosis, rash Results Laboratory Results: 05/23/17 05:18 Creatine Kinase 148 H Impressions: Head MRI 05/20/17 00:00 IMPRESSION: NO ACUTE ISCHEMIA, HEMORRHAGE, OR ENHANCING LESIONS IDENTIFIED. EXTENSIVE ABNORMAL WHITE MATTER DISEASE GREATER THAN EXPECTED FOR AGE WITH LINEAR HYPERINTENSE SIGNAL INVOLVING THE PERIVENTRICULAR WHITE MATTER SUGGESTIVE OF A DEMYELINATING PROCESS SUCH MULTIPLE SCLEROSIS. CORRELATE WITH CLINICAL HISTORY AND PRIOR IMAGING IF AVAILABLE. EVIDENCE OF ACUTE STROKE: NO. Head CT 05/20/17 11:12 IMPRESSION: NORMAL BRAIN CT WITHOUT CONTRAST. EVIDENCE OF ACUTE STROKE: NO. Chest X-Ray 05/21/17 00:00 IMPRESSION: NO SIGNIFICANT RADIOGRAPHIC FINDING IN THE CHEST. Assessment & Plan - Diagnosis (1) Metabolic encephalopathy Is this a current diagnosis for this admission?: Yes Plan: Resolving work up negative thus far. Could the have been due to her hypertension. However patient's abnormal MRI brain and similar presentation 1 year ago is concerning for possible MS. Will start pulse steroids. Discussed with [facility] as they have evaluated her in the past and they are not concerned about the MRI as it was that way one year ago. They feel that this may be psychiatric instead. Chest XR negative. Urine negative. (2) Type 2 diabetes mellitus Qualifiers: Diabetes mellitus complication status: with circulatory complication Is this a current diagnosis for this admission?: Yes Plan: Patient put back on her home dose of insulin. SSI added. Patient having elevated glucoses while on pulse steroids which is expected. Will titrate insulin accordingly. (3) Hypertension Qualifiers: Hypertension type: essential hypertension Qualified Code(s): I10 - Essential (primary) hypertension Is this a current diagnosis for this admission?: Yes Plan: Patient on norvasc. She states she was suppose to be started on losartan by her PCP but never was. Will start this medication. Unfortunately steroids will cause elvated blood pressures too. Will treated bp accordingly. Will continue with PRN hydralazine. (4) Abnormal brain MRI Is this a current diagnosis for this admission?: Yes Plan: Abnormalities were present on previous MRI done at [facility]. Concerned for MS. Plan for LP on Tuesday to look for oligo clonal bands. I am not able to order Aqua porin 4. Continue on pulse steroids 1 gram solumedrol day 07/22. Patient on IV protonix bid. (5) Elevated CPK Is this a current diagnosis for this admission?: Yes Plan: Continue IV hydration. Uncertain as to the cause of this, but will continue to treat with hydration. - Time Time Spent with patient: Less than 15 minutes Anticipated discharge: Home Within: Other - After pulse steroids are completed. - Inpatient Certification Medical Necessity: Other - .IV steroids needed for possible MS flare
[2017-05-25 08:39] VITALS: BP 174/90
--- NOTE | 2017-05-25 08:53 | PDOC PROGRESS REPORT ---
Subjective Progress Note for:: 05/22/17 Subjective:: Patient 46 female presenting with bizzare behavior. She was brought to the ED by her daughter. MRI brain consistent with MS. Patient started on high dose pulse steroids of 1gram daily x 5 days for possible MS. Patient is more of herself today per daughter. Patient states she is feels good. She is smiling. She is concerned about her elevated blood pressure and blood glucose. Patient is okay with having the lumber puncture and following up with neurology out patient. Physical Exam Vital Signs: Temp 99.4 pulse 94 bp 158/85 rr 17 sat98. General appearance: PRESENT: no acute distress, well-developed, well-nourished Head exam: PRESENT: atraumatic, normocephalic Eye exam: PRESENT: conjunctiva pink, EOMI, PERRLA. ABSENT: scleral icterus Ear exam: PRESENT: normal external ear exam Mouth exam: PRESENT: moist, tongue midline Neck exam: ABSENT: carotid bruit, JVD, lymphadenopathy, thyromegaly Respiratory exam: PRESENT: clear to auscultation donald. ABSENT: rales, rhonchi, wheezes Cardiovascular exam: PRESENT: RRR. ABSENT: diastolic murmur, rubs, systolic murmur Pulses: PRESENT: normal dorsalis pedis pul Vascular exam: PRESENT: normal capillary refill GI/Abdominal exam: PRESENT: normal bowel sounds, soft. ABSENT: distended, guarding, mass, organolmegaly, rebound, tenderness Rectal exam: PRESENT: deferred Extremities exam: PRESENT: full ROM. ABSENT: calf tenderness, clubbing, pedal edema Neurological exam: PRESENT: alert, awake, oriented to person, oriented to place , oriented to time, oriented to situation, CN II-XII grossly intact. ABSENT: motor sensory deficit Psychiatric exam: PRESENT: appropriate affect, normal mood. ABSENT: homicidal ideation, suicidal ideation Skin exam: PRESENT: dry, intact, warm. ABSENT: cyanosis, rash Results Laboratory Results: 05/23/17 05:18 Creatine Kinase 148 H Impressions: Head MRI 05/20/17 00:00 IMPRESSION: NO ACUTE ISCHEMIA, HEMORRHAGE, OR ENHANCING LESIONS IDENTIFIED. EXTENSIVE ABNORMAL WHITE MATTER DISEASE GREATER THAN EXPECTED FOR AGE WITH LINEAR HYPERINTENSE SIGNAL INVOLVING THE PERIVENTRICULAR WHITE MATTER SUGGESTIVE OF A DEMYELINATING PROCESS SUCH MULTIPLE SCLEROSIS. CORRELATE WITH CLINICAL HISTORY AND PRIOR IMAGING IF AVAILABLE. EVIDENCE OF ACUTE STROKE: NO. . Assessment & Plan - Diagnosis (1) Metabolic encephalopathy Is this a current diagnosis for this admission?: Yes Plan: I don't believe this is metabolic in nature. I do believe that the patient may be having an MS flair. Currently on pulse steroids. Plan for LP and follow up with neurology. Infection is still being ruled out. (2) Type 2 diabetes mellitus Qualifiers: Diabetes mellitus complication status: with circulatory complication Is this a current diagnosis for this admission?: Yes Plan: Still having difficulty managing while patient is on high dose steroids. Will continue to titrate insulin. Explained to patient that this is not unusual while on steroids. (3) Hypertension Qualifiers: Hypertension type: essential hypertension Qualified Code(s): I10 - Essential (primary) hypertension Is this a current diagnosis for this admission?: Yes Plan: Uncontrolled due to the use of high michaels steroids. Patient on norvasc and losartan. PRN hydralazine. Will decrease IV fluids. (4) Abnormal brain MRI Is this a current diagnosis for this admission?: Yes Plan: Abnormalities were present on previous MRI done at [facility]. Concerned for MS. Plan for LP on Tuesday to look for oligo clonal bands. I am not able to order Aquaporin 4. Continue on pulse steroids 1 gram solumedrol day 08/22. Patient on IV protonix bid. Patient states that she does not have any MS but she will follow up with neurology on discharge if appointment is made. (5) Elevated CPK Is this a current diagnosis for this admission?: Yes Plan: Continue IV hydration. Will follow up CPK. - Time Time Spent with patient: Less than 15 minutes Medications reviewed and adjusted accordingly: Yes Anticipated discharge: Home Within: Other - Patient need to remain in the hospital for pulse steroids.
--- NOTE | 2017-05-25 09:04 | PDOC PROGRESS REPORT ---
Subjective Progress Note for:: 05/23/17 Subjective:: Patient 46 female presenting with bizzare behavior. She was brought to the ED by her daughter. MRI brain consistent with MS. Patient started on high dose pulse steroids of 1gram daily x 5 days for possible MS. Patient states that she did not realize that she would have to lay flat. She kept having to urinate. She states she feels fine otherwise. She does not have any pain following the LP. She is looking forward to going home. Patient denies having any vision loss in the rosy or transient weakness. Physical Exam Vital Signs: temp 98.9 pulse 86 bp150/85 RR18 sat99 General appearance: PRESENT: no acute distress, well-developed, well-nourished Head exam: PRESENT: atraumatic, normocephalic Eye exam: ABSENT: scleral icterus Ear exam: PRESENT: normal external ear exam Mouth exam: PRESENT: moist Neck exam: ABSENT: carotid bruit, JVD, lymphadenopathy, thyromegaly Respiratory exam: PRESENT: clear to auscultation donald. ABSENT: rales, rhonchi, wheezes Cardiovascular exam: PRESENT: RRR. ABSENT: diastolic murmur, rubs, systolic murmur GI/Abdominal exam: PRESENT: normal bowel sounds, soft. ABSENT: distended, guarding, mass, organolmegaly, rebound, tenderness Rectal exam: PRESENT: deferred Extremities exam: PRESENT: full ROM. ABSENT: calf tenderness, clubbing, pedal edema Neurological exam: PRESENT: alert, awake, oriented to person, oriented to place , oriented to time, oriented to situation, CN II-XII grossly intact. ABSENT: motor sensory deficit Psychiatric exam: PRESENT: appropriate affect, normal mood. ABSENT: homicidal ideation, suicidal ideation Skin exam: PRESENT: dry, intact, warm. ABSENT: cyanosis, rash Results Laboratory Results: 05/23/17 09:21 Cerebral Spinal Fluid - Csf AFB Smear Concentration - Final 05/23/17 09:21 Cerebral Spinal Fluid - Csf Acid Fast Bacilli Smear - Final 05/23/17 05:18 Creatine Kinase 148 H Impressions: Head MRI 05/20/17 00:00 IMPRESSION: NO ACUTE ISCHEMIA, HEMORRHAGE, OR ENHANCING LESIONS IDENTIFIED. EXTENSIVE ABNORMAL WHITE MATTER DISEASE GREATER THAN EXPECTED FOR AGE WITH LINEAR HYPERINTENSE SIGNAL INVOLVING THE PERIVENTRICULAR WHITE MATTER SUGGESTIVE OF A DEMYELINATING PROCESS SUCH MULTIPLE SCLEROSIS. CORRELATE WITH CLINICAL HISTORY AND PRIOR IMAGING IF AVAILABLE. EVIDENCE OF ACUTE STROKE: NO. Head CT 05/20/17 11:12 IMPRESSION: NORMAL BRAIN CT WITHOUT CONTRAST. EVIDENCE OF ACUTE STROKE: NO. Chest X-Ray 05/21/17 00:00 IMPRESSION: NO SIGNIFICANT RADIOGRAPHIC FINDING IN THE CHEST. Guidance Fluoroscopy 05/23/17 00:00 IMPRESSION: Lumbar puncture under fluoroscopy. No immediate complication. Lumbar Puncture 05/23/17 09:52 IMPRESSION: Lumbar puncture under fluoroscopy. No immediate complication. Assessment & Plan - Diagnosis (1) Metabolic encephalopathy Is this a current diagnosis for this admission?: Yes Plan: I don't believe this is metabolic in nature. I do believe that the patient may be having an MS flair. Continue pulse steroids. LP completed today. Patient to follow up with neurology on discharge. Patient will like to stay locate if possible. (2) Type 2 diabetes mellitus Qualifiers: Diabetes mellitus complication status: with hyperglycemia Is this a current diagnosis for this admission?: Yes Plan: Normally controlled. Patient now on basal bolus and sliding scale. Blood glucoses are somewhat better. Will improve once pulse steroids completed. (3) Hypertension Qualifiers: Hypertension type: essential hypertension Qualified Code(s): I10 - Essential (primary) hypertension Is this a current diagnosis for this admission?: Yes Plan: Better with the discontinuation of fluids. Continue losartan and norvasc. PRN hydralazine continued. (4) Abnormal brain MRI Is this a current diagnosis for this admission?: Yes Plan: Abnormalities were present on previous MRI done at [facility]. Concerned for MS. Status post LP to look for oligo clonal bands. I am not able to order Aquaporin 4. Continue on pulse steroids 1 gram solumedrol day 3/5. Patient on IV protonix bid. Patient states that she does not have any MS but she will follow up with neurology on discharge if appointment is made. (5) Elevated CPK Is this a current diagnosis for this admission?: Yes
[2017-05-25] MEDS: AMLODIPINE BESYLATE 10 MG TABLET PO SCH (09:20)
[2017-05-25] MEDS: INSULIN GLARGINE,HUM.REC.ANLOG 300 UNIT/3 ML INSULN.PEN SUBCUT SCH (09:21)
[2017-05-25] MEDS: INSULIN LISPRO 100 UNIT/ML 3 ML VIAL SUBCUT SCH ×2 (09:21)
[2017-05-25] MEDS ORDERED: LOSARTAN POTASSIUM 50 MG TABLET PO SCH (10:00)
[2017-05-25 16:39] LABS: ALPHA-2-GLOBULIN 5.7 % (3.0-12.6); CSF PE BETA GLOBULIN 13.7 % (7.3-17.9); PROT ELEC MSPIKE Not Observed % (Not Observed); TOTAL PROTEIN CSF PE 25.9 mg/dL (0.0-44.0)
--- NOTE | 2017-05-26 06:44 | PDOC PROGRESS REPORT ---
Subjective Progress Note for:: 05/24/17 Subjective:: Patient 46 female presenting with bizzare behavior. She was brought to the ED by her daughter. MRI brain consistent with MS. Patient started on high dose pulse steroids of 1gram daily x 5 days for possible MS. Patient feels well. She is going for a walk today. Patient daughter revealed that patient was having lose of vision in one of her eye in 2010 and required treatment. Physical Exam Vital Signs: Temperature 99.2 pulse 87 BP 143/89 RR16 sat 98% General appearance: PRESENT: no acute distress, well-developed, well-nourished Head exam: PRESENT: normocephalic Eye exam: PRESENT: EOMI. ABSENT: scleral icterus Ear exam: PRESENT: normal external ear exam Mouth exam: PRESENT: moist Neck exam: ABSENT: carotid bruit, JVD, lymphadenopathy, thyromegaly Respiratory exam: PRESENT: clear to auscultation donald. ABSENT: rales, rhonchi, wheezes Cardiovascular exam: PRESENT: RRR. ABSENT: diastolic murmur, rubs, systolic murmur GI/Abdominal exam: PRESENT: normal bowel sounds, soft. ABSENT: distended, guarding, mass, organolmegaly, rebound, tenderness Rectal exam: PRESENT: deferred Extremities exam: PRESENT: full ROM. ABSENT: calf tenderness, clubbing, pedal edema Neurological exam: PRESENT: alert, awake, oriented to person, oriented to place , oriented to time, oriented to situation, CN II-XII grossly intact. ABSENT: motor sensory deficit Psychiatric exam: PRESENT: appropriate affect, normal mood. ABSENT: homicidal ideation, suicidal ideation Skin exam: PRESENT: dry, intact, warm. ABSENT: cyanosis, rash Results Laboratory Results: 05/23/17 09:21 Cerebral Spinal Fluid - Csf AFB Smear Concentration - Final 05/23/17 09:21 Cerebral Spinal Fluid - Csf Acid Fast Bacilli Smear - Final 05/23/17 05:18 Creatine Kinase 148 H Impressions: Head MRI 05/20/17 00:00 IMPRESSION: NO ACUTE ISCHEMIA, HEMORRHAGE, OR ENHANCING LESIONS IDENTIFIED. EXTENSIVE ABNORMAL WHITE MATTER DISEASE GREATER THAN EXPECTED FOR AGE WITH LINEAR HYPERINTENSE SIGNAL INVOLVING THE PERIVENTRICULAR WHITE MATTER SUGGESTIVE OF A DEMYELINATING PROCESS SUCH MULTIPLE SCLEROSIS. CORRELATE WITH CLINICAL HISTORY AND PRIOR IMAGING IF AVAILABLE. EVIDENCE OF ACUTE STROKE: NO. Head CT 05/20/17 11:12 IMPRESSION: NORMAL BRAIN CT WITHOUT CONTRAST. EVIDENCE OF ACUTE STROKE: NO. Chest X-Ray 05/21/17 00:00 IMPRESSION: NO SIGNIFICANT RADIOGRAPHIC FINDING IN THE CHEST. Guidance Fluoroscopy 05/23/17 00:00 IMPRESSION: Lumbar puncture under fluoroscopy. No immediate complication. Lumbar Puncture 05/23/17 09:52 IMPRESSION: Lumbar puncture under fluoroscopy. No immediate complication. Assessment & Plan - Diagnosis (1) Metabolic encephalopathy Is this a current diagnosis for this admission?: Yes Plan: I don't believe this is metabolic in nature. I do believe that the patient may be having an MS flair. Continue pulse steroids day 10/20. Arranged for pharmacy to give last dose of steroids by 6 am followed by early discharged on 05/25. S/p LP on 05/23. Patient to follow up with neurology on discharge. (2) Type 2 diabetes mellitus Qualifiers: Diabetes mellitus complication status: with hyperglycemia Is this a current diagnosis for this admission?: Yes Plan: Continue basal bolus insulin with sliding scale. Patient will be able to achieve better control once off pulse steroids. (3) Hypertension Qualifiers: Hypertension type: essential hypertension Qualified Code(s): I10 - Essential (primary) hypertension Is this a current diagnosis for this admission?: Yes Plan: Labile but improving. Will continue norvasc 10mg increase losartan to 50mg and continue with PRN hydralazine. (4) Abnormal brain MRI Is this a current diagnosis for this admission?: Yes Plan: Abnormalities were present on previous MRI done at [facility]. Concerned for MS. Status post LP to look for oligo clonal bands. I am not able to order Aquaporin 4. Continue on pulse steroids 1 gram solumedrol day /. Patient on IV protonix bid for GI prophylaxis. Patient states that she does not have any MS but she will follow up with neurology on discharge if appointment is made. Patient daughter revealed that patient was suffering vision loss in 1 eye in 2010. Not surf if that is related to her possible diagnosis of MS. (5) Elevated CPK Is this a current diagnosis for this admission?: Yes - Time Time Spent with patient: Less than 15 minutes Anticipated discharge: Home Within: within 24 hours
--- NOTE | 2017-05-26 06:59 | PDOC DISCHARGE SUMMARY ---
General - Admit/Disc Date/PCP Admission Date/Primary Care Provider: 05/20/17 15:49 ERIKA KRUSE MD Discharge Date: 05/25/17 - Discharge Diagnosis (1) Metabolic encephalopathy Is this a current diagnosis for this admission?: Yes (2) Type 2 diabetes mellitus Is this a current diagnosis for this admission?: Yes (3) Hypertension Is this a current diagnosis for this admission?: Yes (4) Abnormal brain MRI Is this a current diagnosis for this admission?: Yes (5) Elevated CPK Is this a current diagnosis for this admission?: Yes - Additional Information Resuscitation Status: Full Code Discharge Diet: Diabetic Discharge Activity: Activity As Tolerated Home Medications: Amlodipine Besylate [Norvasc 10 mg Tablet] 10 mg PO DAILY 05/20/17 Insulin Glargine,Hum.rec.anlog [Lantus Solostar] 50 units SQ DAILY 05/20/17 Losartan Potassium [Cozaar 50 mg Tablet] 50 mg PO DAILY 30 Days #30 tablet 05/24 History of Present Illness History of Present Illness: MYRA RIVAS is a 46 year old female brought in by her daughter for mother behaving differently. Patient has similar presentation in the post but was thought to be infectious. She was transferred and further worked up at [facility]. Patient found to have a abnormal MRI brain at this time and again this time. Patient admitted and treated by the hospitalist service. Hospital Course Hospital Course: Patient presented with odd behavior. Patient has flat affect, no fluctuation in her voice, delayed response. Patient cause was discussed with neurology and psychiatry at [facility]. They were not impressed with her MRI brain finding stating that they are unchange from before. They believe that this was psychiatric. I was concerned for a MS flate; therefore, patient was started on pulse steroids 1 gram solumedrol x 5 dose. Lumbar puncture was completed on 05/23. The fluids was unremarkable for infection. Still awaiting that result for the oligoclonal bands. Patient is doing much better and is back to her baseline. Patient denied any signs of MS in the past, but her daughter states that she was suffering in one of her eye in 2010. Patient is scheduled to follow up with neurology locally. Patient has hypertension and diabetes which were difficult to manage as patient was on pulse steroids for her possible MS and IV fluids for her elevated CPK. Patient should be to continue with her home regimen of insulin on discharge as it was controlling her blood glucose in the past. Patient was on norvasc 10mg and losartan 50mg was started in the hospital. Her blood pressure was labile but was trending down. This too should improve after being off of pulse steroids. Patient CPK trended down. I was uncertain as to why it was mildly elevated. Physical Exam Vital Signs: Temp Pulse Resp BP Pulse Ox 98.5 F 74 18 174/90 H 100 05/25/17 08:09 05/25/17 08:09 05/25/17 08:09 05/25/17 08:09 05/25/17 08:09 Intake & Output 05/24/17 05/25/17 05/26/17 06:59 06:59 06:59 Intake Total 1645 1920 Output Total 600 Balance 1045 1920 Weight 66.3 kg 65.5 kg General appearance: PRESENT: no acute distress, well-developed, well-nourished Head exam: PRESENT: atraumatic, normocephalic Eye exam: PRESENT: conjunctiva pink, EOMI, PERRLA. ABSENT: scleral icterus Ear exam: PRESENT: normal external ear exam Mouth exam: PRESENT: moist, tongue midline Neck exam: ABSENT: carotid bruit, JVD, lymphadenopathy, thyromegaly Respiratory exam: PRESENT: clear to auscultation donald. ABSENT: rales, rhonchi, wheezes Cardiovascular exam: PRESENT: RRR. ABSENT: diastolic murmur, rubs, systolic murmur Pulses: PRESENT: normal dorsalis pedis pul Vascular exam: PRESENT: normal capillary refill GI/Abdominal exam: PRESENT: normal bowel sounds, soft. ABSENT: distended, guarding, mass, organolmegaly, rebound, tenderness Rectal exam: PRESENT: deferred Extremities exam: PRESENT: full ROM. ABSENT: calf tenderness, clubbing, pedal edema Neurological exam: PRESENT: alert, awake, oriented to person, oriented to place , oriented to time, oriented to situation, CN II-XII grossly intact. ABSENT: motor sensory deficit Psychiatric exam: PRESENT: appropriate affect, normal mood. ABSENT: homicidal ideation, suicidal ideation Skin exam: PRESENT: dry, intact, warm. ABSENT: cyanosis, rash Results Laboratory Results: 05/23/17 09:21 Cerebral Spinal Fluid - Csf Gram Stain - Final 05/23/17 09:21 Cerebral Spinal Fluid - Csf AFB Smear Concentration - Final 05/23/17 09:21 Cerebral Spinal Fluid - Csf Acid Fast Bacilli Smear - Final 05/23/17 05:18 Creatine Kinase 148 H Impressions: Head MRI 05/20/17 00:00 IMPRESSION: NO ACUTE ISCHEMIA, HEMORRHAGE, OR ENHANCING LESIONS IDENTIFIED. EXTENSIVE ABNORMAL WHITE MATTER DISEASE GREATER THAN EXPECTED FOR AGE WITH LINEAR HYPERINTENSE SIGNAL INVOLVING THE PERIVENTRICULAR WHITE MATTER SUGGESTIVE OF A DEMYELINATING PROCESS SUCH MULTIPLE SCLEROSIS. CORRELATE WITH CLINICAL HISTORY AND PRIOR IMAGING IF AVAILABLE. EVIDENCE OF ACUTE STROKE: NO. Head CT 05/20/17 11:12 IMPRESSION: NORMAL BRAIN CT WITHOUT CONTRAST. EVIDENCE OF ACUTE STROKE: NO. Chest X-Ray 05/21/17 00:00 IMPRESSION: NO SIGNIFICANT RADIOGRAPHIC FINDING IN THE CHEST. Guidance Fluoroscopy 05/23/17 00:00 IMPRESSION: Lumbar puncture under fluoroscopy. No immediate complication. Lumbar Puncture 05/23/17 09:52 IMPRESSION: Lumbar puncture under fluoroscopy. No immediate complication. Qualifiers PATEINT BEING DISCHARGED WITH ANY OF THE FOLLOWING DIAGNOSIS?: No Plan Time Spent: Less than 30 Minutes - Patient is to follow up with neurology. She can return to work on Tuesday.
[2017-05-26 08:38] LABS: CSF PE GAMMA GLOBULIN 10.6 % (3.0-13.0)
== END 2017-05-25 09:15 | disposition home or self-care (01) | DRG 948 ==
LOC: ER 10:28 → OBSVTOIN 15:49 → EH 15:49 → UNDOADMOB 18:03 → EH 18:03 → 4N 19:11
PROVIDERS: ADMIT Hospitalist; ATTEND Hospitalist
PROC: 009U3ZX Drainage of Spinal Canal, Percutaneous Approach, Diagnostic (ICD-10-PCS; principal; 2017-05-23)
PROC: B01B1ZZ Fluoroscopy of Spinal Cord using Low Osmolar Contrast (ICD-10-PCS; 2017-05-23)
DX: R41.82 Altered mental status, unspecified (principal); R46.1 Bizarre personal appearance; R74.8 Abnormal levels of other serum enzymes; E11.9 Type 2 diabetes mellitus without complications; R94.02 Abnormal brain scan; I10 Essential (primary) hypertension; Z90.710 Acquired absence of both cervix and uterus; Z79.4 Long term (current) use of insulin
CPT/HCPCS: 36415; 62270; 70450; 70553; 71020; 77003; 80053; 80307; 81001; 82140; 82550; 82553; 82607; 82746; 82945; 82962; 83916; 84157; 84166; 84439; 84443; 84481; 84484; 85025; 85610; 85730; 86701; 87015; 87040; 87070; 87086; 87116; 87205; 87206; 87210; 87252; 89050; 96361; 96374; 99285; A9577; J0360; J1200; J1630; J1815; J2060; J2930; J3490; J7030; S0164

== ENCOUNTER 2017-11-24 08:20 | Emergency (ER) | payer MEDICAID ==
[2017-11-24] MEDS ORDERED: LOSARTAN POTASSIUM 50 MG TABLET PO ONE (09:03)
--- NOTE | 2017-11-24 09:03 | ER Document Report ---
ED General - General Chief Complaint: Doesn't Feel Right Stated Complaint: WEAKNESS Time Seen by Provider: 11/24/17 08:30 Mode of Arrival: Ambulatory Information source: Patient, Relative Notes: 47-year-old female presents with daughter with concerns of not acting right. Patient has a history of hypertension had a recent diagnosis of encephalopathy and possible beginning stages of multiple sclerosis patient refuses to follow- up with neurologist. Daughter notes over the past week she has been acting off but no specific complaints are noted. TRAVEL OUTSIDE OF THE [place] IN LAST 30 DAYS: No - HPI Onset: Last week Onset/Duration: Intermittent Quality of pain: No pain Severity: Mild Pain Level: Denies Associated symptoms: Other Exacerbated by: Denies Relieved by: Denies Similar symptoms previously: Yes Recently seen / treated by doctor: Yes Notes: Patient did not take her losartan today - Related Data Allergies/Adverse Reactions: No Known Allergies Allergy (Verified 05/20/17 10:40) Past Medical History - Social History Smoking Status: Never Smoker Cigarette use (# per day): No Chew tobacco use (# tins/day): No Smoking Education Provided: No Family History: DM, Hypertension - Past Medical History Cardiac Medical History: Reports: Hx Hypertension Endocrine Medical History: Reports: Hx Diabetes Mellitus Type 1, Hx Diabetes Mellitus Type 2 Renal/ Medical History: Denies: Hx Peritoneal Dialysis Psychiatric Medical History: Denies: Hx Depression Past Surgical History: Reports: Hx Hysterectomy Review of Systems - Review of Systems Notes: REVIEW OF SYSTEMS: CONSTITUTIONAL : Denies fever, chills, or sweats. Denies recent illness. EENT: Denies eye, ear, throat, or mouth pain or symptoms. Denies nasal or sinus congestion or discharge. Denies throat, tongue, or mouth swelling or difficulty swallowing. CARDIOVASCULAR: Denies chest pain. Denies palpitations or racing or irregular heart beat. Denies ankle edema. RESPIRATORY: Denies cough, cold, or chest congestion. Denies shortness of breath, difficulty breathing, or wheezing. GASTROINTESTINAL: Denies abdominal pain or distention. Denies nausea, vomiting , or diarrhea. Denies blood in vomitus, stools, or per rectum. Denies black, tarry stools. Denies constipation. GENITOURINARY: Denies difficulty urinating, painful urination, burning, frequency, blood in urine, or discharge. FEMALE GENITOURINARY: Denies vaginal bleeding, heavy or abnormal periods, irregular periods. Denies vaginal discharge or odor. MUSCULOSKELETAL: Denies back or neck pain or stiffness. Denies joint pain or swelling. SKIN: Denies rash, lesions or sores. HEMATOLOGIC : Denies easy bruising or bleeding. LYMPHATIC: Denies swollen, enlarged glands. NEUROLOGICAL: Admits to mild confusion PSYCHIATRIC: Denies anxiety or stress. Denies depression, suicidal ideation, or homicidal ideation. ALL OTHER SYSTEMS REVIEWED AND NEGATIVE. PHYSICAL EXAMINATION: GENERAL: Well-appearing, well-nourished and in no acute distress. HEAD: Atraumatic, normocephalic. EYES: Pupils equal round and reactive to light, extraocular movements intact, conjunctiva are normal. ENT: Nares patent, oropharynx clear without exudates. Moist mucous membranes. NECK: Normal range of motion, supple without lymphadenopathy LUNGS: Breath sounds clear to auscultation bilaterally and equal. No wheezes rales or rhonchi. HEART: Regular rate and rhythm without murmurs ABDOMEN: Soft, nontender, nondistended abdomen. No guarding, no rebound. No masses appreciated. Female : deferred Musculoskeletal: Normal range of motion, no pitting or edema. No cyanosis. NEUROLOGICAL: Shuffling gait patient is slow to respond to commands but does do them appropriately PSYCH: Normal mood, normal affect. SKIN: Warm, Dry, normal turgor, no rashes or lesions noted. Dictation was performed using [employer] voice recognition software Physical Exam - Vital signs Vitals: Temp Pulse Resp BP Pulse Ox 98.9 F 85 20 190/82 H 99 11/24/17 08:27 11/24/17 08:27 11/24/17 08:27 11/24/17 08:27 11/24/17 08:27 Course - Re-evaluation Re-evalutation: 11/24/17 09:06 Patient herself notes that she just does not feel like eating, has no complaints no chest pain or shortness of breath or pain anywhere. She is noted to be hypertensive but has not taken her blood pressure medication today 11/24/17 11:28 Patient's workup is quite benign, I do not have a specific cause of the patient' s presentation at this time, she was quite hypertensive upon arrival but she had not taken her blood pressure medication. Her blood pressure has improved to 169/9 time, I will discharge her home with extremely close follow-up After performing a Medical Screening Examination, I estimate there is LOW risk for ACUTE GLAUCOMA, TEMPORAL ARTERITIS, MENINGITIS, INCRANIAL HEMORRHAGE, or ISCHEMIC STROKE thus I consider the discharge disposition reasonable. I have reevaluated this patient multiple times and no significant life threatening changes are noted. The patient and I have discussed the diagnosis and risks, and we agree with discharging home with close follow-up with the understanding that symptoms and presentations can change. We also discussed returning to the Emergency Department immediately if new or worsening symptoms occur. We have discussed the symptoms which are most concerning (e.g., changing or worsening symptoms, new numbness or weakness, vomiting, fever) that necessitate immediate return. - Vital Signs Vital signs: Temp Pulse Resp BP Pulse Ox 98.9 F 85 18 171/97 H 99 11/24/17 08:27 11/24/17 08:27 11/24/17 10:03 11/24/17 10:03 11/24/17 10:03 - Laboratory Result Diagrams: 11/24/17 09:47 11/24/17 09:47 Laboratory results interpreted by me: 11/24/17 11/24/17 11/24/17 09:47 09:47 10:21 MCV 78 L Seg Neutrophils % 79.8 H Sodium 146.0 H Glucose 246 H Calcium 10.4 H Creatine Kinase 308 H Urine Glucose (UA) 150 H - Diagnostic Test Radiology reviewed: Image reviewed - CT head noted no significant abnormality with the contrast, Reports reviewed Discharge - Discharge Clinical Impression: Hypertension Qualifiers: Hypertension type: essential hypertension Qualified Code(s): I10 - Essential ( primary) hypertension Type 2 diabetes mellitus Qualifiers: Diabetes mellitus complication status: with unspecified complications Qualified Code(s): E11.8 - Type 2 diabetes mellitus with unspecified complications Condition: Stable Disposition: HOME, SELF-CARE Instructions: High Blood Pressure ([facility]) Referrals: ERIKA KRUSE MD [Primary Care Provider] - Follow up tomorrow
[2017-11-24 10:11] LABS: ABSOLUTE LYMPHOCYTES (AUTO) 1.3 10^3/uL (0.5-4.7); ABSOLUTE MONOCYTES (AUTO) 0.4 10^3/uL (0.1-1.4); ABSOLUTE NEUT (AUTO) 6.7 10^3/uL (1.7-8.2); BASOPHILS % (AUTO) 0.4 % (0-2); EOSINOPHILS % (AUTO) 0.3 % (0-6); HEMATOCRIT 40.9 % (36.0-47.0); HEMOGLOBIN 14.3 g/dL (12.0-15.5); LYMPHOCYTES % (AUTO) 15.3 % (13-45); MEAN CORPUSCULAR HEMOGLOBIN 27.3 pg (27.0-33.4); MEAN CORPUSCULAR VOLUME 78 fl (80-97); MONOCYTES % (AUTO) 4.2 % (3-13); PLATELET COUNT 250 10^3/uL (150-450); RED BLOOD COUNT 5.25 10^6/uL (3.72-5.28); SEGMENTED NEUTROPHILS % (AUTO) 79.8 % (42-78); TOTAL CELLS COUNTED % (AUTO) 100 %; WHITE BLOOD COUNT 8.4 10^3/uL (4.0-10.5)
[2017-11-24 10:15] LABS: VENOUS BLOOD HCO3 25.7 mmol/L (20-32); VENOUS BLOOD PCO2 45.4 mmHg (35-63); VENOUS BLOOD PH 7.37 (7.30-7.42)
[2017-11-24 10:34] LABS: ALANINE AMINOTRANSFERASE 28 U/L (9-52); ALBUMIN 4.8 g/dL (3.5-5.0); ALKALINE PHOSPHATASE 77 U/L (38-126); ANION GAP 18 (5-19); ASPARTATE AMINO TRANSFERASE 21 U/L (14-36); BILIRUBIN,DIRECT 0.3 mg/dL (0.0-0.4); BILIRUBIN,TOTAL 0.7 mg/dL (0.2-1.3); BLOOD UREA NITROGEN 13 mg/dL (7-20); CALCIUM 10.4 mg/dL (8.4-10.2); CARBON DIOXIDE 28 mmol/L (22-30); CHLORIDE 100 mmol/L (98-107); CREATINE KINASE 308 U/L (30-135); GLUCOSE 246 mg/dL (75-110); POTASSIUM 4.1 mmol/L (3.6-5.0); TOTAL PROTEIN 7.8 g/dL (6.3-8.2)
--- NOTE | 2017-11-24 10:34 | RADIOLOGY REPORT (SQ) ---
EXAM DESCRIPTION: CT HEAD WITHOUT COMPLETED DATE/TIME: 11/24/2017 10:07 am REASON FOR STUDY: confusion COMPARISON: None. TECHNIQUE: Axial images acquired through the brain without intravenous contrast. Images reviewed wi th bone, brain and subdural windows. Additional sagittal and coronal reconstructions were generated. Images stored on PACS. All CT scanners at this facility use dose modulation, iterative reconstruction, and/or weight based d osing when appropriate to reduce radiation dose to as low as reasonably achievable (ALARA). [facility]: Dose Right [facility]: CareDose [facility]: Dose Right [facility]: Teradose 4D [facility]: [employer] RADIATION DOSE: CT Rad equipment meets quality standard of care and radiation dose reduction techniq ues were employed. CTDIvol: 53.2 mGy. DLP: 1097 mGy-cm. mGy. LIMITATIONS: None. FINDINGS: VENTRICLES: Normal size and contour. CEREBRUM: No masses. No hemorrhage. No midline shift. No evidence for acute infarction. Normal gra y/white matter differentiation. No areas of low density in the white matter. CEREBELLUM: No masses. No hemorrhage. No alteration of density. No evidence for acute infarction. EXTRAAXIAL SPACES: No fluid collections. No masses. ORBITS AND GLOBE: No intra- or extraconal masses. Normal contour of globe without masses. CALVARIUM: No fracture. PARANASAL SINUSES: No fluid or mucosal thickening. SOFT TISSUES: No mass or hematoma. OTHER: No other significant finding. IMPRESSION: NORMAL BRAIN CT WITHOUT CONTRAST. EVIDENCE OF ACUTE STROKE: NO. COMMENT: Quality ID # [id number]: Final reports with documentation of one or more dose reduction techniques (e.g., Automated exposure control, adjustment of the mA and/or kV according to patient size, use of iterative reconstruction technique) TECHNICAL DOCUMENTATION: JOB ID: [id number] [employer]- All Rights Reserved Reading location - IP/workstation name: [email or web address]
[2017-11-24 10:44] LABS: APPEARANCE,URINE CLEAR; BILIRUBIN,URINE NEGATIVE (NEGATIVE); COLOR,URINE COLORLESS; GLUCOSE, URINE 150 mg/dL (NEGATIVE); KETONES,URINE NEGATIVE (NEGATIVE); LEUKOCYTE ESTERASE,URINE NEGATIVE (NEGATIVE); NITRITE,URINE NEGATIVE (NEGATIVE); PROTEIN,URINE NEGATIVE (NEGATIVE); URINE SPECIFIC GRAVITY 1.002; UROBILINOGEN,URINE NEGATIVE mg/dL (<2.0)
[2017-11-24 10:46] LABS: CREATINE KINASE MB 3.17 ng/mL (<4.55)
[2017-11-24 10:47] LABS: TROPONIN I < 0.012 ng/mL
[2017-11-24 11:47] VITALS: BP 172/91
== END 2017-11-24 12:00 | disposition home or self-care (01) ==
LOC: ER 08:20
DX: I10 Essential (primary) hypertension (principal); E11.8 Type 2 diabetes mellitus with unspecified complications; R53.1 Weakness; Z90.710 Acquired absence of both cervix and uterus
CPT/HCPCS: 36415; 70450; 80053; 81001; 82550; 82553; 82803; 84484; 85025; 99285

== ENCOUNTER 2017-11-24 15:52 | Emergency (ER) | payer MEDICAID ==
[2017-11-24 16:06] VITALS: BP 163/86
--- NOTE | 2017-11-24 16:26 | ER Document Report ---
ED General - General Chief Complaint: Doesn't Feel Right Stated Complaint: WEAKNESS Time Seen by Provider: 11/24/17 16:12 Notes: The patient is a 47-year-old female, past medical history encephalitis, possible MS, presents with several months of generalized weakness and not feeling right. 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 She never followed up with the neurologist, even though her daughter is encouraging her to. She was seen in the ER earlier this morning for the same symptoms in her lab work and CAT scan were unremarkable. She returns to the ER if she is still feeling the same way. Denies focal weakness, numbness, tingling, headache, blurry vision, chest pain, shortness of breath, urinary symptoms, nausea or vomiting. TRAVEL OUTSIDE OF THE [place] IN LAST 30 DAYS: No - Related Data Allergies/Adverse Reactions: No Known Allergies Allergy (Verified 05/20/17 10:40) Past Medical History - General Information source: Patient - Social History Smoking Status: Never Smoker Chew tobacco use (# tins/day): No Frequency of alcohol use: None Drug Abuse: None Family History: DM, Hypertension Patient has suicidal ideation: No Patient has homicidal ideation: No - Past Medical History Cardiac Medical History: Reports: Hx Hypertension Endocrine Medical History: Reports: Hx Diabetes Mellitus Type 1, Hx Diabetes Mellitus Type 2 Renal/ Medical History: Denies: Hx Peritoneal Dialysis Psychiatric Medical History: Denies: Hx Depression Past Surgical History: Reports: Hx Hysterectomy Review of Systems - Review of Systems Notes: REVIEW OF SYSTEMS: CONSTITUTIONAL: -fevers, -chills EENT: -eye pain, -difficulty swallowing, -nasal congestion CARDIOVASCULAR: -chest pain, -syncope. RESPIRATORY: -cough, -SOB GASTROINTESTINAL: -abdominal pain, -nausea, -vomiting, -diarrhea GENITOURINARY: -dysuria, -hematuria MUSCULOSKELETAL: -back pain, -neck pain SKIN: -rash or skin lesions. HEMATOLOGIC: -easy bruising or bleeding. LYMPHATIC: -swollen, enlarged glands. NEUROLOGICAL: -altered mental status or loss of consciousness, -headache, - focal neurologic symptoms PSYCHIATRIC: -anxiety, -depression. ALL OTHER SYSTEMS REVIEWED AND NEGATIVE. Physical Exam - Vital signs Vitals: Temp Pulse Resp BP Pulse Ox 99.4 F 85 18 163/86 H 99 11/24/17 16:04 05/10/18 16:04 11/24/17 16:04 11/24/17 16:04 11/24/17 16:04 - Notes Notes: PHYSICAL EXAMINATION: GENERAL: Well-appearing, well-nourished and in no acute distress. HEAD: Atraumatic, normocephalic. EYES: Pupils equal round and reactive to light, extraocular movements intact, sclera anicteric, conjunctiva are normal. ENT: nares patent, oropharynx clear without exudates. Moist mucous membranes. NECK: Normal range of motion, supple without lymphadenopathy LUNGS: Breath sounds clear to auscultation bilaterally and equal. No wheezes rales or rhonchi. HEART: Regular rate and rhythm without murmurs ABDOMEN: Soft, nontender, normoactive bowel sounds. No guarding, no rebound. No masses appreciated. EXTREMITIES: Normal range of motion, no pitting or edema. No cyanosis. NEUROLOGICAL: Cranial nerves grossly intact. Normal speech, normal gait. Normal sensory and motor exams. PSYCH: Normal mood, normal affect. SKIN: Warm, Dry, normal turgor, no rashes or lesions noted. Course - Re-evaluation Re-evalutation: Patient with no focal neuro signs. Reviewed her labs and head CT from prior visit earlier today and they are unremarkable. Physical exam is also unremarkable and vital signs are normal, other than hypertension. Encouraged her to follow-up with her primary care physician and neurology for further evaluation and treatment of possible MS and prior herpes encephalitis. She does not require repeat blood work at this time. - Vital Signs Vital signs: Temp Pulse Resp BP Pulse Ox 99.4 F 85 18 163/86 H 99 11/24/17 16:04 11/24/17 16:04 11/24/17 16:04 11/24/17 16:04 11/24/17 16:04 Discharge - Discharge Clinical Impression: Generalized weakness, Abnormal brain MRI Condition: Stable Disposition: HOME, SELF-CARE Additional Instructions: You must follow-up with the neurologist for further evaluation and treatment of your symptoms and abnormal MRI of your head last year. Your blood work and head CT from this morning did not show any evidence of an emergent condition. Forms: Elevated Blood Pressure Referrals: ERIKA KRUSE MD [Primary Care Provider] - Follow up as needed DENNYS BRUNNER MD [NO LOCAL MD] - Follow up as needed MILES VERDUZCO MD [EMERITUS] - Follow up as needed
== END 2017-11-24 16:28 | disposition home or self-care (01) ==
LOC: ER 15:52
DX: R53.1 Weakness (principal); R93.0 Abnormal findings on diagnostic imaging of skull and head, not elsewhere classified; E11.9 Type 2 diabetes mellitus without complications
CPT/HCPCS: 99284

== ENCOUNTER 2017-11-24 18:57 | Emergency (ER) | payer MEDICAID ==
[2017-11-24 20:15] LABS: APPEARANCE,URINE CLEAR; BILIRUBIN,URINE NEGATIVE (NEGATIVE); COLOR,URINE STRAW; GLUCOSE, URINE >=500 mg/dL (NEGATIVE); KETONES,URINE TRACE mg/dL (NEGATIVE); LEUKOCYTE ESTERASE,URINE NEGATIVE (NEGATIVE); NITRITE,URINE NEGATIVE (NEGATIVE); PROTEIN,URINE NEGATIVE (NEGATIVE); URINE SPECIFIC GRAVITY 1.012; UROBILINOGEN,URINE NEGATIVE mg/dL (<2.0)
[2017-11-24 20:31] LABS: URINE AMPHETAMINES SCREEN NEGATIVE; URINE BARBITURATES SCREEN NEGATIVE; URINE BENZODIAZEPINES SCREEN NEGATIVE; URINE COCAINE SCREEN NEGATIVE; URINE MARIJUANA (THC) SCREEN NEGATIVE; URINE METHADONE SCREEN NEGATIVE; URINE PHENCYCLIDINE SCREEN NEGATIVE
[2017-11-24] MEDS ORDERED: HALOPERIDOL LACTATE INJ 5 MG/1 ML VIAL IM ONE (20:43)
[2017-11-24] MEDS ORDERED: DIPHENHYDRAMINE HCL 50 MG/ML VIAL IM ONE (20:43)
[2017-11-24] MEDS ORDERED: LORAZEPAM INJ 2 MG/1 ML VIAL IM ONE (20:47)
[2017-11-24] MEDS ORDERED: DIPHENHYDRAMINE HCL 50 MG/ML VIAL IV ONE (20:51)
[2017-11-24] MEDS ORDERED: LORAZEPAM INJ 2 MG/1 ML VIAL IV ONE (20:52)
[2017-11-24 21:05] LABS: ABSOLUTE LYMPHOCYTES (AUTO) 2.1 10^3/uL (0.5-4.7); ABSOLUTE MONOCYTES (AUTO) 0.5 10^3/uL (0.1-1.4); ABSOLUTE NEUT (AUTO) 6.4 10^3/uL (1.7-8.2); BASOPHILS % (AUTO) 0.4 % (0-2); EOSINOPHILS % (AUTO) 0.2 % (0-6); HEMATOCRIT 39.5 % (36.0-47.0); HEMOGLOBIN 13.9 g/dL (12.0-15.5); MEAN CORPUSCULAR HEMOGLOBIN 27.3 pg (27.0-33.4); MEAN CORPUSCULAR HGB CONC 35.2 g/dL (32.0-36.0); MEAN CORPUSCULAR VOLUME 78 fl (80-97); MONOCYTES % (AUTO) 5.3 % (3-13); PLATELET COUNT 240 10^3/uL (150-450); RED BLOOD COUNT 5.08 10^6/uL (3.72-5.28); SEGMENTED NEUTROPHILS % (AUTO) 71.1 % (42-78); TOTAL CELLS COUNTED % (AUTO) 100 %; WHITE BLOOD COUNT 9.1 10^3/uL (4.0-10.5)
[2017-11-24 21:19] LABS: ALANINE AMINOTRANSFERASE 27 U/L (9-52); ALBUMIN 4.6 g/dL (3.5-5.0); ALKALINE PHOSPHATASE 83 U/L (38-126); ANION GAP 14 (5-19); ASPARTATE AMINO TRANSFERASE 51 U/L (14-36); BILIRUBIN,DIRECT 0.3 mg/dL (0.0-0.4); BILIRUBIN,TOTAL 0.6 mg/dL (0.2-1.3); BLOOD UREA NITROGEN 18 mg/dL (7-20); CALCIUM 10.1 mg/dL (8.4-10.2); CARBON DIOXIDE 27 mmol/L (22-30); CHLORIDE 100 mmol/L (98-107); GLUCOSE 265 mg/dL (75-110); SODIUM 141.2 mmol/L (137-145); TOTAL PROTEIN 7.8 g/dL (6.3-8.2)
[2017-11-24 21:21] LABS: ACETAMINOPHEN < 10 ug/mL (10-30); ALCOHOL < 10 mg/dL (NONE DETECTED); SALICYLATE < 1.0 mg/dL (2.0-20.0)
--- NOTE | 2017-11-24 22:21 | ER Document Report ---
ED General - General TRAVEL OUTSIDE OF THE [place]. IN LAST 30 DAYS: No - HPI Patient complains to provider of: Confusion elevated blood sugars <MARGE SANCHEZ - Last Filed: 11/24/17 23:15> <MYRIAM FAUST - Last Filed: 11/25/17 12:38> <ROHIT HAYES - Last Filed: 11/25/17 12:52> - General Chief Complaint: High Blood Sugar Stated Complaint: CONFUSION, BLOOD SUGAR ISSUE Time Seen by Provider: 11/24/17 19:11 - HPI Notes: Patient coming in for by EMS for confusion and elevated blood sugars. Patient having recently seen today in the ER 2 other separate times. According EMS to found patient confused in her place of living. Apparently patient lives by herself and had ransacked her place the line of her belongings in the middle of the floor. Patient seen by her blood sugars and was transported to the ER. Upon my evaluation there is family at bedside. M states patient is complaining of generalized weakness and has had changes in mental state for the past few weeks to months. Patient had a history of herpes encephalitis in 2016 was transfer divided at a time and then another episode of altered mental state and was admitted to the hospital here for possible MS flare. Review of the patient' s past medical history does show extensive testing for multiple sclerosis with MRI showing possible demyelinating process however the patient testing for MS 3 CSF returned negative. Patient also had testing for syphilis at the time CSF that was also negative. Patient apparently felt better after steroids discharged home and referred to neurology patient according to family members never followed up with a neurologist. Upon my initial evaluation patient is alert and oriented 3 understanding she is that [facility] years 2017 and the president is Keith Novak I did asked patient why she threw all of her belongings around was unable to give me a direct answer. I also asked patient what her goals were for her visit upon this time and is not able to give an answer. Family does state that she the patient is going through menopause and has been going through menopause for the past 3 years. Denies any changes in her medications patient states [facility] however does not have a true primary care physician. (MARGE SANCHEZ) - Related Data Allergies/Adverse Reactions: No Known Allergies Allergy (Verified 05/20/17 10:40) Past Medical History - Social History Smoking Status: Never Smoker Chew tobacco use (# tins/day): No Frequency of alcohol use: None Drug Abuse: None Family History: DM, Hypertension Patient has suicidal ideation: No Patient has homicidal ideation: No - Past Medical History Cardiac Medical History: Reports: Hx Hypertension Endocrine Medical History: Reports: Hx Diabetes Mellitus Type 1, Hx Diabetes Mellitus Type 2 Renal/ Medical History: Denies: Hx Peritoneal Dialysis Psychiatric Medical History: Denies: Hx Depression Past Surgical History: Reports: Hx Hysterectomy <MARGE SANCHEZ Filed: 11/24/17 23:15> Review of Systems - Review of Systems Constitutional: Other - Change in mental state EENT: No symptoms reported Cardiovascular: No symptoms reported Respiratory: No symptoms reported Gastrointestinal: No symptoms reported Genitourinary: No symptoms reported Female Genitourinary: No symptoms reported Musculoskeletal: No symptoms reported Skin: No symptoms reported Hematologic/Lymphatic: No symptoms reported Neurological/Psychological: No symptoms reported <MARGE SANCHEZ Filed: 11/24/17 23:15> Physical Exam - Vital signs Interpretation: Normal - General General appearance: Appears well, Alert - HEENT Head: Normocephalic, Atraumatic Eyes: Normal Pupils: PERRL - Respiratory Respiratory status: No respiratory distress Chest status: Nontender Breath sounds: Normal Chest palpation: Normal - Cardiovascular Rhythm: Regular Heart sounds: Normal auscultation Murmur: No - Abdominal Inspection: Normal Distension: No distension Bowel sounds: Normal Tenderness: Nontender Organomegaly: No organomegaly - Back Back: Normal, Nontender - Extremities General upper extremity: Normal inspection, Nontender, Normal color, Normal ROM , Normal temperature General lower extremity: Normal inspection, Nontender, Normal color, Normal ROM , Normal temperature, Normal weight bearing. No: Evgney's sign - Neurological Neuro grossly intact: Yes Cognition: Normal Orientation: AAOx4 Angelo Coma Scale Eye Opening: Spontaneous Angelo Coma Scale Verbal: Oriented Angelo Coma Scale Motor: Obeys Commands Angelo Coma Scale Total: 15 Speech: Normal Motor strength normal: LUE, RUE, LLE, RLE Sensory: Normal - Psychological Associated symptoms: Hinduism preoccupation - Skin Skin Temperature: Warm Skin Moisture: Dry Skin Color: Normal <MARGE SANCHEZ Filed: 11/24/17 23:15> - Vital signs Vitals: Temp Resp BP Pulse Ox 98.5 F 20 162/94 H 99 11/24/17 19:04 11/24/17 19:04 11/24/17 19:04 11/24/17 19:04 Course - Laboratory Result Diagrams: 11/24/17 19:02 11/24/17 19:02 <MARGE SANCHEZ - Last Filed: 11/24/17 23:15> - Laboratory Result Diagrams: 11/24/17 19:02 11/24/17 19:02 <MYRIAM FAUST - Last Filed: 11/25/17 12:38> - Laboratory Result Diagrams: 11/24/17 19:02 11/24/17 19:02 - Diagnostic Test Radiology reviewed: Image reviewed, Reports reviewed - CT scan of the brain was normal yesterday. <ROHIT HAYES - Last Filed: 11/25/17 12:52> - Re-evaluation Re-evalutation: 11/24/17 22:17 This is the patient's third visit for altered mental state. During her visit patient initially ANO 3 denies any homicidal suicidal ideation was calm I did review patient's previous visits and admissions with the patient and family at bedside. Explained to the patient at this time I would repeat a urinalysis and urine drug screen patient stated understanding. After leaving the room patient began screaming. Did reenter the room patient screaming "come get me Sheng". Patient continued to scream and was not redirectable. Family did also show me pictures of her apartment which the patient does live alone apartment have been ransacked at all the belongings thrown in the middle of the floor. Patient continued and during these episodes was not directable denies any hallucinations. Concern for possible underlying acute psychosis therefore patient was given medications to help her situation we did repeat blood work urine drug screen which not show any signs of a metabolic etiology. Patient is afebrile I do not feel that there is an infectious etiology I do not feel the patient warrants lumbar puncture. I did review the patient's CSF from previous visits looking for possible signs of MS and reviewed MRI. This testing was negative and on 1 of the discharge summaries conversation that the hospitalist had with neurology (Jonnathan) does state that they were not very impressed and did recommend psychiatric evaluation for the patient's altered mental status again concern about acute psychosis therefore placed the patient on a petition as that the patient does live by herself at this time is not redirectable and I am concerned for her safety. As patient does not have fever and also does not complain of headache do not think any further imaging of the CT scan performed earlier this morning is required at this time. There is possibility possible malingering or fastidious causes for the patient's behavior. And I think patient has any criteria at this time the warrant an admission. 11/24/17 23:18 (MARGE SANCHEZ) 11/25/17 12:45 [facility] has spoken with the patient's daughter and they have an appointment for this patient to be seen at 2 PM in their office to get a referral to a neurologist. I spoke with the patient twice. Patient is mentally competent at this time. Expresses no homicidal or suicidal thoughts. Is not certain what caused her to be so aggressive and difficult to manage when she came in last night. Basically, she has had 2 prior episodes of similar behaviors since the fall 2015. In March of that year, she was evaluated and sent to [facility]. Patient says that when she was transferred to [facility], they did not find anything wrong with her and advised her to have a neurological evaluation, but the patient never followed up with a neurologist. When she was back here a few months ago when I saw her, she was noted to have a elevated CPK and unusual behavior and was admitted here and no other findings. Patient wishes to go home. She does not want to go through any further evaluation here. From my 2 conversations with her, she is making sense and talking rationally and answers questions appropriately and is capable of making a decision about her health. The daughter is going to pick her up and take her to her primary care for referral to a neurologist. (ROHIT HAYES) - Vital Signs Vital signs: Temp Pulse Resp BP Pulse Ox 98.4 F 89 16 158/86 H 97 11/25/17 09:18 11/25/17 09:18 11/24/17 19:07 11/25/17 09:18 11/25/17 09:18 - Laboratory Laboratory results interpreted by me: 11/24/17 11/24/17 11/24/17 19:02 19:02 20:00 MCV 78 L Glucose 265 H POC Glucose AST 51 H Creatine Kinase Urine Glucose (UA) >=500 H Urine Ketones TRACE H Urine Ascorbic Acid 40 H Salicylates < 1.0 L Acetaminophen < 10 L 11/25/17 11/25/17 11/25/17 06:25 10:50 11:40 MCV Glucose POC Glucose 256 H 226 H AST Creatine Kinase 297 H Urine Glucose (UA) Urine Ketones Urine Ascorbic Acid Salicylates Acetaminophen 11/25/17 12:45 Patient CPK is elevated at 297. When she was admitted here a couple of months ago, she had a CPK of 300. Her source of the elevated CPK is uncertain. Her kidney function remains normal. (ROHIT HAYES) Discharge <MARGE SANCHEZ - Last Filed: 11/24/17 23:15> <MYRIAM FAUST - Last Filed: 11/25/17 12:38> <ROHIT HAYES - Last Filed: 11/25/17 12:52> - Discharge Clinical Impression: Diabetes, Hypertension Altered mental status, unspecified Qualifiers: Altered mental status type: unspecified Qualified Code(s): R41.82 - Altered mental status, unspecified Condition: Stable Disposition: HOME, SELF-CARE Additional Instructions: Altered Mental Status An altered mental status is a change in the normal functioning of the brain. This alteration of function can range from minor decreased brain function with some forgetfulness and confusion to complete loss of consciousness and coma. There are many possible causes of an altered mental status and include brain injuries such as trauma or strokes, problems with oxygen supply to the brain, fever and infections of the brain and/or elsewhere in the body, metabolic abnormalities such as low or high blood sugar, overdoses or excessive medication ingestion, and mental and psychiatric illnesses. Sometimes the altered mental status resolves and a definite cause is not determined. If a cause for your altered mental status was found, it has likely been corrected. Your evaluation has not shown any condition that requires that you be admitted to the hospital. It is believed that you are safe to leave and return to your home. If you have a return of your symptoms, you should return for re-evaluation. Follow up care: We are recommending you follow up with your primary care provider at [facility] today 11/25/2017 at 2:30 pm to discuss today's visit and for the referral to a neurologist. Mental health coordinated with your daughter Shanti Tramble, who agreed to grape picker you and transport you to your appointment. Referrals: [facility] [Provider Group] - 11/25/17 2:30 pm
[2017-11-24] MEDS ORDERED: DEXTROSE 50%-WATER SYRINGE 12.5 GM/25 ML DOSE IV PRN (23:47)
[2017-11-24] MEDS ORDERED: DEXTROSE 50%-WATER SYRINGE 25 GM/50 ML DOSE IV PRN (23:47)
[2017-11-24] MEDS ORDERED: GLUCAGON,HUMAN RECOMB 1 MG INJ IM PRN (23:47)
[2017-11-24] MEDS ORDERED: DEXTROSE 40% GEL 15 GM TUBE PO PRN (23:47)
[2017-11-24] MEDS ORDERED: DEXTROSE 40% GEL 15 GM TUBE X 2 PO PRN (23:47)
[2017-11-25] MEDS: INSULIN REG, HUMAN 100 UNIT/ML 3 ML VIAL (PYX) SUBCUT PRN ×2 (07:37→11:36)
--- NOTE | 2017-11-25 07:55 | EKG REPORT ---
SEVERITY:- NORMAL ECG - SINUS RHYTHM : Confirmed by: Best Rosales MD 25-Nov-2017 07:54:59
[2017-11-25] MEDS ORDERED: LOSARTAN POTASSIUM 50 MG TABLET PO SCH (10:00)
[2017-11-25] MEDS ORDERED: AMLODIPINE BESYLATE 10 MG TABLET PO SCH (10:00)
--- NOTE | 2017-11-25 10:25 | ER Document Report ---
Doctor's Note Notes: 11/25/17 10:22 Rounds: Chart reviewed and patient interviewed. Patient says she is here being evaluated for confusion. Has a history of insulin-dependent diabetes. Patient' s lab studies were have all been normal except for her blood sugar of 265. Vital signs are all normal. Going to give the patient a dose of Lantus this morning. Patient appears to be medically stable for transfer or discharge. Bharati Light MD
[2017-11-25] MEDS ORDERED: INSULIN GLARGINE,HUM.REC.ANLOG 1,000 UNIT/10 ML UNIT SUBCUT SCH ×2 (10:30→18:00)
[2017-11-25 13:28] VITALS: BP 154/85
== END 2017-11-25 13:05 | disposition home or self-care (01) ==
LOC: ER 18:57
DX: R41.82 Altered mental status, unspecified (principal); I10 Essential (primary) hypertension; E11.9 Type 2 diabetes mellitus without complications
CPT/HCPCS: 93005; 99284; 96372; 96374; 96375; 36415; 82962; 80307 ×4; 82550; 85025; 80053; 81001; 93010; J1200; J1630; J2060; J1815

== ENCOUNTER → 2018-01-26 | Outpatient (CLI) | payer MEDICAID ==
--- NOTE | 2018-01-27 09:50 | EEG PRO FEE REPORT ---
EEG INTERPRETATION PATIENT NAME: MYRA RIVAS ROOM#: ORDER#: [id number] DATE OF STUDY: 01/26/2018 : 1970 REFERRING MD: RAJEEV LUO M.D. MEDICATIONS Lantus, Apidra, Fluticasone propionate, Amlodipine besylate, vitamin B1, vitamin B12, vitamin D3 History This is a 47 year old right handed woman with a history of hypertension and diabetes who passed out while doing her lawn and became lethargic. This EEG was requested for possible seizures. EEG Interpretation This EEG was recorded in the brief awake and primarily drowsy state with brief sleep recorded. The awake EEG is characterized by a fairly well organized background with a reactive posterior dominant rhythm of 9 Hz. Drowsiness is characterized by attenuation and slowing of the background rhythms. There are several runs of brief sharply contoured theta waves in the left>right temporal region either simultaneously or independently with some independent sharp wave forms as well. Vertex waves were seen in the midline head region. K complexes were present. Stage II sleep was characterized by sleep spindles. Photic stimulation resulted in no significant changes. There were no definite epileptiform abnormalities noted. The EKG strip showed a heart rate in the high 50's-low 60's. EEG Impression This EEG is within normal limits for age in the primarily drowsy state. The sharp waves and sharply contoured theta runs in the mid-temporal region are most consistent with rhythmic mid-temporal theta of drowsiness {RMTD, formally known as psychomotor variant}and wicket spikes which are both benign variants noted during drowsiness. If clinically indicated, a follow up awake EEG without sleep deprivation may be considered. The EKG showed a low-normal/bradycardia that may warrant further investigation. INTERPRETING PHYSICIAN: GRACIE BALLARD M.D. /: MTBETO TT: [id number] ID: [id number] /: [id number] TD: [id number] JOB: [id number] cc:David LUONG M.D. > MTDD
== END ==
LOC: NEURO 08:32
PROVIDERS: ATTEND Pediatrics
DX: R41.82 Altered mental status, unspecified (principal); I10 Essential (primary) hypertension; E11.9 Type 2 diabetes mellitus without complications
CPT/HCPCS: 95819

== ENCOUNTER 2018-10-21 04:11 | Emergency (ER) | payer MEDICAID ==
--- NOTE | 2018-10-21 04:51 | ER Document Report ---
ED General - General Mode of Arrival: Stretcher Information source: Relative TRAVEL OUTSIDE OF THE [place] IN LAST 30 DAYS: No <KOKO MILTON - Last Filed: 10/22/18 01:33> - General Mode of Arrival: Ambulatory Information source: Patient, Relative - Son-in-law TRAVEL OUTSIDE OF THE [place] IN LAST 30 DAYS: No - HPI Patient complains to provider of: AMS, Feet Pain, CP <AMANDA ZULUAGA - Last Filed: 10/22/18 01:36> - General Chief Complaint: Leg Pain Stated Complaint: FEET HURT,BACK PAIN Time Seen by Provider: 10/21/18 04:29 Primary Care Provider: MALIA CHATMAN PA-C [Primary Care Provider] - Follow up as needed - HPI Notes: Patient is here with her son-in-law at the bedside. Somewhat difficult getting a good history from the patient and she is unable to provide a great history. According to the son-in-law, patient has been acting abnormal today. Apparently she was walking up and down the steps for the last 4 hours and then started to complain of some chest pain. She denies any chest pain currently. She is complaining of some bilateral feet pain and some low back pain. She also states that she has been urinating frequently. Son-in-law states that she seems to be talking abnormally and saying things that do not quite make sense. She often times has episodes where she walks up and down the steps and turned on and off l ights all night making it difficult for the family to sleep. Patient denies any nausea, vomiting, diarrhea. No rash. No fever. No blurred or loss vision. Patient is a diabetic. She states she has not taken her blood sugar and quite some time because her meter does not have batteries. She states that she has been taking her insulin though. She denies any other specific complaints at this time. (AMANDA ZULUAGA) - Related Data Allergies/Adverse Reactions: No Known Allergies Allergy (Verified 05/20/17 10:40) Past Medical History - General Information source: Patient, Relative - Social History Smoking Status: Unknown if Ever Smoked Family History: Reviewed & Not Pertinent, DM, Hypertension <KOKO MILTON - Last Filed: 10/22/18 01:33> - Social History Smoking Status: Unknown if Ever Smoked Family History: DM, Hypertension - Past Medical History Cardiac Medical History: Reports: Hx Hypertension Endocrine Medical History: Reports: Hx Diabetes Mellitus Type 1, Hx Diabetes Mellitus Type 2 Renal/ Medical History: Denies: Hx Peritoneal Dialysis Psychiatric Medical History: Denies: Hx Depression Past Surgical History: Reports: Hx Hysterectomy <AMANDA ZULUAGA - Last Filed: 10/22/18 01:36> Review of Systems - Review of Systems -: Yes All other systems reviewed and negative <AMANDA ZULUAGA - Last Filed: 10/22/18 01:36> Physical Exam <AMANDA ZULUAGA - Last Filed: 10/22/18 01:36> - Vital signs Vitals: Temp Pulse Resp BP Pulse Ox 98.4 F 78 24 H 181/62 H 100 10/21/18 04:17 10/21/18 04:17 10/21/18 04:17 10/21/18 04:17 10/21/18 04:17 - Notes Notes: GENERAL: alert, cooperative, nontoxic, no distress. HEAD: normocephalic, atraumatic EYES: conjunctiva pink without discharge, no external redness or swelling. Pupils are equal, round, reactive to light. EARS: no external swelling, no external redness NOSE: atraumatic, no external swelling MOUTH/THROAT: mucous membranes moist and pink, posterior pharynx without erythema, swelling, exudate. No trismus or drooling. NECK: soft, supple, full range of motion, no meningismus. CHEST: no distress, lungs clear and equal throughout. No wheezing, rales, rhonchi. CARDIAC: regular rate and rhythm, no murmur, normal capillary refill, normal pulses. No peripheral edema noted. BACK: full range of motion, no CVA tenderness. EXTREMITIES: full range of motion of all extremities. No redness, no swelling. NEURO: alert and oriented x 3, cranial nerves II through XII are grossly intact. Upper and lower extremities are equal throughout. Normal sensation. No focal deficits, full range of motion of all extremities. normal finger to nose. PYSCH: appropriate mood, affect. Patient is cooperative. SKIN: pink, warm, dry, no rash. (AMANDA ZULUAGA) Course - Laboratory Result Diagrams: 10/21/18 05:10 10/21/18 05:10 <KOKO MILTON - Last Filed: 10/22/18 01:33> - Laboratory Result Diagrams: 10/21/18 05:10 10/21/18 05:10 - EKG Interpretation by Me EKG shows normal: Sinus rhythm, [place], Intervals, QRS Complexes, ST-T Waves Rate: Normal Rhythm: NSR When compared to previous EKG there are: Other - Rate is 72. No STEMI. <AMANDA ZULUAGA - Last Filed: 10/22/18 01:36> - Re-evaluation Re-evalutation: 10/21/18 04:54 Patient seen and evaluated by myself. Agree with [facility] plan of care and workup. Her chief complaint to me was burning pain on the bottom of her feet. Patient had tenderness to light palpation of the plantar aspects of both feet with no external rashes or lesions. She has no bony deformity to suggest fracture and no history of trauma. will continue to follow patient care (KOKO MILTON) 10/21/18 06:20 Patient resting comfortably at this time. Workup is negative for any significant metabolic reason for her abnormal behavior. Still complaining of some pain to her feet and legs. Will order her a dose of Toradol. Based on her abnormal behavior and no obvious medical reason for her normal behaviors, I have ordered a psych consult on the patient. We will allow psych to see the patient to determine ultimate disposition. We will continue to monitor. 10/21/18 07:40 Patient continues to rest comfortably at this time. He will be transferred to the oncoming provider. We will continue to monitor until the patient is seen and evaluated by psych to determine ultimate plan and disposition. (AAMNDA ZULUAGA) - Vital Signs Vital signs: Temp Pulse Resp BP Pulse Ox 98.2 F 90 16 158/105 H 99 10/21/18 22:00 10/21/18 22:00 10/21/18 22:00 10/21/18 22:00 10/21/18 22:00 - Laboratory Laboratory results interpreted by me: 10/21/18 10/21/18 10/21/18 04:59 05:10 05:10 MCV 77 L MCHC 36.7 H RDW 14.1 H Glucose 172 H POC Glucose 168 H Calcium 10.6 H Ammonia Creatine Kinase 234 H Urine Ketones Ur Leukocyte Esterase 10/21/18 10/21/18 10/21/18 05:10 05:10 15:15 MCV MCHC RDW Glucose POC Glucose 333 H Calcium Ammonia < 8.7 L Creatine Kinase Urine Ketones 20 H Ur Leukocyte Esterase TRACE H 10/21/18 10/21/18 10/22/18 17:45 20:47 00:45 MCV MCHC RDW Glucose POC Glucose 336 H 318 H 239 H Calcium Ammonia Creatine Kinase Urine Ketones Ur Leukocyte Esterase Discharge <KOKO MILTON - Last Filed: 10/22/18 01:33> <AMANDA ZULUAGA - Last Filed: 10/22/18 01:36> - Discharge Clinical Impression: Altered mental status, unspecified Qualifiers: Altered mental status type: disorientation Qualified Code(s): R41.0 - Disorientation, unspecified Condition: Stable Disposition: ADMITTED OBSERVATION Referrals: MALIA CHATMAN PADanielC [Primary Care Provider] - Follow up as needed
[2018-10-21 05:38] LABS: ABSOLUTE EOSINOPHILS # (AUTO) 0.1 10^3/uL (0.0-0.6); ABSOLUTE LYMPHOCYTES (AUTO) 1.8 10^3/uL (0.5-4.7); ABSOLUTE MONOCYTES (AUTO) 0.4 10^3/uL (0.1-1.4); ABSOLUTE NEUT (AUTO) 6.4 10^3/uL (1.7-8.2); BASOPHILS % (AUTO) 0.5 % (0-2); HEMATOCRIT 38.6 % (36.0-47.0); HEMOGLOBIN 14.2 g/dL (12.0-15.5); LYMPHOCYTES % (AUTO) 20.9 % (13-45); MEAN CORPUSCULAR HEMOGLOBIN 28.1 pg (27.0-33.4); MEAN CORPUSCULAR HGB CONC 36.7 g/dL (32.0-36.0); MEAN CORPUSCULAR VOLUME 77 fl (80-97); PLATELET COUNT 222 10^3/uL (150-450); RED BLOOD COUNT 5.04 10^6/uL (3.72-5.28); RED CELL DISTRIBUTION WIDTH 14.1 % (11.5-14.0); SEGMENTED NEUTROPHILS % (AUTO) 73.6 % (42-78); TOTAL CELLS COUNTED % (AUTO) 100 %; WHITE BLOOD COUNT 8.8 10^3/uL (4.0-10.5)
[2018-10-21 05:47] LABS: APPEARANCE,URINE SLIGHTLY-CLOUDY; BILIRUBIN,URINE NEGATIVE (NEGATIVE); COLOR,URINE YELLOW; GLUCOSE, URINE NEGATIVE (NEGATIVE); KETONES,URINE 20 mg/dL (NEGATIVE); LEUKOCYTE ESTERASE,URINE TRACE (NEGATIVE); NITRITE,URINE NEGATIVE (NEGATIVE); PROTEIN,URINE NEGATIVE (NEGATIVE); UROBILINOGEN,URINE NEGATIVE mg/dL (<2.0)
[2018-10-21 05:50] LABS: ALANINE AMINOTRANSFERASE 29 U/L (9-52); ALBUMIN 4.6 g/dL (3.5-5.0); ALKALINE PHOSPHATASE 111 U/L (38-126); ANION GAP 11 (5-19); ASPARTATE AMINO TRANSFERASE 21 U/L (14-36); BILIRUBIN,DIRECT 0.2 mg/dL (0.0-0.4); BILIRUBIN,TOTAL 0.8 mg/dL (0.2-1.3); BLOOD UREA NITROGEN 8 mg/dL (7-20); CALCIUM 10.6 mg/dL (8.4-10.2); CARBON DIOXIDE 26 mmol/L (22-30); CHLORIDE 103 mmol/L (98-107); CREATINE KINASE 234 U/L (30-135); GLUCOSE 172 mg/dL (75-110); LIPASE 95.4 U/L (23-300); POTASSIUM 3.8 mmol/L (3.6-5.0); SODIUM 139.7 mmol/L (137-145); TOTAL PROTEIN 7.3 g/dL (6.3-8.2)
[2018-10-21 05:51] LABS: ALCOHOL < 10 mg/dL (NONE DETECTED)
[2018-10-21 05:58] LABS: URINE AMPHETAMINES SCREEN NEGATIVE; URINE BARBITURATES SCREEN NEGATIVE; URINE BENZODIAZEPINES SCREEN NEGATIVE; URINE COCAINE SCREEN NEGATIVE; URINE MARIJUANA (THC) SCREEN NEGATIVE; URINE METHADONE SCREEN NEGATIVE; URINE PHENCYCLIDINE SCREEN NEGATIVE
--- NOTE | 2018-10-21 06:10 | RADIOLOGY REPORT (SQ) ---
EXAM DESCRIPTION: CT HEAD WITHOUT IV CONTRAST COMPLETED DATE/TME: 10/21/2018 04:45 CLINICAL HISTORY: 48 years Female, AMS COMPARISON:Nov 24 2017 TECHNIQUE: No contrast. Coronal and sagittal reformat. This exam was performed according to our departmental dose-optimization program, which includes automated exposure control, adjustment of the mA and/or kV according to patient size and/or use of iterative reconstruction technique. FINDINGS: No hemorrhage or infarct. No mass, mass effect, or midline shift. Brain and extra-axial structures appear intact. IMPRESSION: Normal CT of the head.
--- NOTE | 2018-10-21 06:11 | RADIOLOGY REPORT (SQ) ---
EXAM DESCRIPTION: XR CHEST 1 VIEW COMPLETED DATE/TME: 10/21/2018 04:45 CLINICAL HISTORY: 48 years Female, AMS COMPARISON:May 21 2017 NUMBER OF VIEWS/TECHNIQUE: 1/AP FINDINGS: Adequate lung volume, clear parenchyma, normal cardiac silhouette, and intact bony thorax. IMPRESSION: No acute cardiopulmonary findings.
[2018-10-21] MEDS ORDERED: KETOROLAC TROMETHAMINE INJ/PF 30 MG/1 ML SDV IV ONE (06:20)
--- NOTE | 2018-10-21 06:54 | EKG REPORT ---
SEVERITY:- NORMAL ECG - SINUS RHYTHM : Confirmed by: Best Rosales MD 21-Oct-2018 06:53:30
--- NOTE | 2018-10-21 11:26 | ER Document Report ---
Doctor's Note Notes: 10/21/18 11:24 Patient's current and previous visits and admissions for mental status and psychiatric issues was reviewed. Patient has not been able to sleep due to increased stress related to trying to sell her home and the last tube Horacio fell through. She has decompensated since then. Initial recommendations are Prozac daily and Zyprexa 2.5 mg daily. We will see if that will help her get to sleep and then reevaluate after she has had some time to sleep.
[2018-10-21] MEDS: FLUOXETINE HCL 20 MG CAPSULE PO SCH (11:41)
[2018-10-21] MEDS: OLANZAPINE 2.5 MG TABLET PO SCH (11:41)
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
[2018-10-21] MEDS ORDERED: GLUCAGON,HUMAN RECOMB 1 MG INJ IM PRN (13:37)
[2018-10-21] MEDS ORDERED: DEXTROSE 40% GEL 15 GM TUBE PO PRN ×2 (13:37)
[2018-10-21] MEDS ORDERED: DEXTROSE 50%-WATER 25 GM/50 ML DISP.SYRIN IV PRN ×2 (13:37)
[2018-10-21] MEDS: AMLODIPINE BESYLATE 10 MG TABLET PO SCH (13:40)
[2018-10-21] MEDS: INSULIN REG, HUMAN 100 UNIT/ML 3 ML VIAL (PYX) SUBCUT SCH ×2 (17:53→21:27)
[2018-10-21] MEDS ORDERED: CLONIDINE HCL 0.1 MG TABLET PO ONE (21:56)
[2018-10-22] MEDS ORDERED: LORAZEPAM 1 MG TABLET PO ONE (01:17)
--- NOTE | 2018-10-22 01:24 | ER Document Report ---
Doctor's Note Notes: 10/22/18 01:22 I was asked to evaluate this patient. She was in the cot and was very agitated. Patient is complaining of feeling like bugs are crawling on her face and skin. She states that her mouth feels dry which is making it hard to speak. She is mildly tachypneic and appears anxious and agitated. She has not slept yet. Her last Accu-Chek was stable. Patient will be given a dose of oral Ativan for her agitation and anxiety
[2018-10-22] MEDS: OLANZAPINE 2.5 MG TABLET PO SCH (08:15)
[2018-10-22] MEDS: INSULIN REG, HUMAN 100 UNIT/ML 3 ML VIAL (PYX) SUBCUT SCH ×2 (08:16→12:12)
[2018-10-22] MEDS: AMLODIPINE BESYLATE 10 MG TABLET PO SCH (09:14)
[2018-10-22] MEDS: FLUOXETINE HCL 20 MG CAPSULE PO SCH (09:14)
--- NOTE | 2018-10-22 10:12 | ER Document Report ---
Doctor's Note Notes: 10/22/18 10:10 Rounds: Chart reviewed and patient interviewed. Patient is being evaluated for repetitively walking up and downstairs. Also does the same repetitive actions of turning off and on lites in the house, 4 hours at a time. She has diabetes on insulin. Patient seems to be anxious. Vital signs are all essentially normal. Lab studies were also essentially normal except for blood sugars running in the low 200s. Patient appears to be medically stable for transfer or discharge. Bharati Light MD
[2018-10-22] MEDS ORDERED: HALOPERIDOL 5 MG TABLET PO SCH (12:15)
[2018-10-22] MEDS ORDERED: BENZTROPINE MESYLATE 1 MG TABLET PO SCH (12:15)
--- NOTE | 2018-10-22 13:41 | PSYCHOLOGICAL NOTE ---
Psych Note - Psych Note Date seen by psych provider: 10/22/18 Time seen by psych provider: 10:00 Psych Note: Reason for consult:Anxiety Contact Permissions:Son in law Nick Sharp Patient is a 48 yo female presenting to the ED with her son in law for concerns of bizarre behavior and confusion as patient spends hours in the middle of the night walking up and down the stairs and flipping on the lights and is not making sense in conversation. Check in conducted with patient Upon entering room patient's mood is dysphoric with tearful affect. When asked why the patient was sad she reports that she just wants to go home and she "should never went to visit those people." Patient is demonstrating mixed delusions of persecutory and religiosity. Patient discusses concerns about people "doing things: to her. She continued to state she should have never went to visit a former co-worker because the co-workers son was there. She reports the he "felt demonic" when she hugged him and feels that since then things have been happening to her. She states she does not practice witchcraft and does not understand spells. She continued to state that is why she is hearing voices and feeling things. She continued to report that she believes in the holy spirit an d was taught to prey by her grandfather; "maybe he taught me to open my self up to these things." She continued to disclose She had to get rid over everything in her home that she is trying to sell because the "evil" that had "attached to it." Diagnosis: Menopausal Psychosis Medication recommendations as per psychiatric provider, Dr. Eastman are as follows: discontinue Zyprexa 2.5mg QAM Start Haldol 5mg twice daily start Cogentin 1mg daily Prozac 20mg QD Impression/Plan: Patient is recommended for IVC. Patient had an event of tactile hallucination last night at approximately 1 AM. Today she continues to show signs of decompensation with mixed delusions of persecutory and religiosity. New medication recommendations have been provided. 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 Consulted Dr. Adkins in the care and treatment of this patient and ED physician who is in agreement with disposition and recommendation.
[2018-10-22] MEDS ORDERED: HALOPERIDOL 5 MG TABLET PO ONE (15:38)
[2018-10-22 16:26] VITALS: BP 132/85
== END 2018-10-22 15:55 | disposition admitted as inpatient to this hospital (09) ==
LOC: ER 04:11
DX: F28 Other psychotic disorder not due to a substance or known physiological condition (principal); M79.672 Pain in left foot; M79.671 Pain in right foot; M79.605 Pain in left leg; M79.604 Pain in right leg; I10 Essential (primary) hypertension; E11.9 Type 2 diabetes mellitus without complications; Z90.710 Acquired absence of both cervix and uterus
CPT/HCPCS: 93005; 99285; 96374; 36415; 82962; 80307 ×2; 82140; 82550; 83690; 85025; 80053; 81001; 84484; 71045; 70450; 93010; J3490 ×7; J1885; J1815 ×2

== ENCOUNTER → 2019-06-12 | Outpatient (CLI) | payer MEDICAID ==
--- NOTE | 2019-06-12 10:24 | WOMENS IMAGING REPORT ---
EXAM DESCRIPTION: 3D SCREENING MAMMO BILAT COMPLETED DATE/TIME: 06/12/2019 8:53 am REASON FOR STUDY: Z12.31 ENCOUNTER FOR SCREENING MAMMOGRAM FOR MALIGNANT NEOPLASM OF BREAST Z12.31 ENCNTR SCREEN MAMMOGRAM FOR MALIGNANT NEOPLASM OF LISBET COMPARISON: 2017 EXAM PARAMETERS: Views: Standard craniocaudal and mediolateral oblique views of each breast recorded using digital acquisition and breast tomosynthesis. Read with the assistance of CAD. .[facility] - NMT Medical Prep Person Version 9.2 LIMITATIONS: None. FINDINGS: No suspicious masses, suspicious calcifications or architectural distortion. No areas of c oncern. IMPRESSION: NEGATIVE MAMMOGRAM. BIRADS 1. BREAST DENSITY: c. The breasts are heterogeneously dense, which may obscure small masses. BIRAD: ASSESSMENT: 1 NEGATIVE RECOMMENDATION: ROUTINE SCREENING COMMENT: The patient has been notified of the results by letter per MQSA requirements. Additional no tification policies are in place for contacting patient with suspicious or incomplete findings. Quality ID #[id number]: The [employer] recommends an annual screening mammogram for women aged 40 years or over. This facility utilizes a reminder system to ensure that all patients receive reminder letters, and/or direct phone calls for appointments. This includes reminders for routine scr eening mammograms, diagnostic mammograms, or other Breast Imaging Interventions when appropriate. Th is patient will be placed in the appropriate reminder system. TECHNICAL DOCUMENTATION: FINDING NUMBER: (1) ASSESSMENT: (1) JOB ID: [id number]- All Rights Reserved Reading location - IP/workstation name: [email or web address]
== END ==
LOC: WI 08:17
PROVIDERS: ATTEND Physician Assistant
DX: Z12.31 Encounter for screening mammogram for malignant neoplasm of breast (principal)
CPT/HCPCS: 77063; 77067

== ENCOUNTER → 2020-02-06 | Outpatient (CLI) | payer MEDICAID ==
--- NOTE | 2020-02-06 11:31 | RADIOLOGY REPORT (SQ) ---
EXAM DESCRIPTION: LUMBAR SPINE COMPLETE IMAGES COMPLETED DATE/TIME: 02/06/2020 10:56 am REASON FOR STUDY: LOW BACK PAIN M54.5 LOW BACK PAIN COMPARISON: None. NUMBER OF VIEWS: Five views including obliques. TECHNIQUE: AP, lateral, oblique, and sacral radiographic images acquired of the lumbar spine. LIMITATIONS: None. FINDINGS: MINERALIZATION: Normal. SEGMENTATION: Normal. No transitional anatomy. ALIGNMENT: Normal. VERTEBRAE: Maintained height. No fracture or worrisome bone lesion. DISCS: Preserved height. No significant osteophytes or end plate irregularity. POSTERIOR ELEMENTS: No definite pars defects. Pedicles and facets are intact. HARDWARE: None in the spine. PARASPINAL SOFT TISSUES: Normal. PELVIS: Intact as visualized. No fractures or worrisome bone lesions. SI joints intact. OTHER: No other significant finding. IMPRESSION: NORMAL 5 VIEW LUMBAR SPINE. TECHNICAL DOCUMENTATION: JOB ID: [id number] 2010 [employer]- All Rights Reserved Reading location - IP/workstation name: [email or web address]
== END ==
LOC: OD 10:41
PROVIDERS: ATTEND Physician Assistant
DX: M54.5 Low back pain (principal)
CPT/HCPCS: 72110

== ENCOUNTER 2020-05-06 08:47 | Emergency (ER) | payer MEDICAID ==
[2020-05-06 08:52] VITALS: BP 140/68
--- NOTE | 2020-05-06 10:26 | ER Document Report ---
HPI - HPI Time Seen by Provider: 05/06/20 10:17 Pain Level: 3 Notes: 49-year-old female presents to the emergency room with complaints of left arm upper pain that is been bothering her for the last 2 months. Denies any trauma, heavy lifting or falling. Reports pain is become worse over the last week. Reports pain is a throbbing pain, 3 out of 5, worse at nighttime. Has tried Mobic from her primary care provider without relief. Has tried heat and she states this made it worse. Patient is not on any blood thinners. She does have a referral for the orthopedics but she says the pain is become worse. Denies any periods of immobilization, surgery, history of cancer, being on any type of control, history of PE's or DVT's MEDICATIONS: I agree with the patient medications as charted by the RN. ALLERGIES: I agree with the allergies as charted by the RN. PAST MEDICAL HISTORY/PAST SURGICAL HISTORY: Reviewed and agree as charted by RN. SOCIAL HISTORY: Reviewed and agree as charted by RN. FAMILY HISTORY: No significant familial comorbid conditions directly related to patient complaint REVIEW OF SYSTEMS: Per parent reviewed vital signs by RN CONSTITUTIONAL : Denies fever, chills, or sweats. Denies recent illness. EENT: Denies eye, ear, throat, or mouth pain or symptoms. Denies nasal or sinus congestion or discharge. Denies throat, tongue, or mouth swelling or difficulty swallowing. CARDIOVASCULAR: Denies chest pain. Denies palpitations or racing or irregular heart beat. Denies ankle edema. RESPIRATORY: Denies cough, cold, or chest congestion. Denies shortness of breath, difficulty breathing, or wheezing. GASTROINTESTINAL: Denies abdominal pain or distention. Denies nausea, vomiting, or diarrhea. Denies blood in vomitus, stools, or per rectum. Denies black, tarry stools. Denies constipation. GENITOURINARY: Denies difficulty urinating, painful urination, burning, frequency, blood in urine, or discharge. MUSCULOSKELETAL: reports left arm pain x 2 months. Denies back or neck pain or stiffness. Denies joint pain or swelling. SKIN: Denies rash, lesions or sores. HEMATOLOGIC : Denies easy bruising or bleeding. LYMPHATIC: Denies swollen, enlarged glands. NEUROLOGICAL: Denies confusion or altered mental status. Denies passing out or loss of consciousness. Denies dizziness or lightheadedness. Denies headache. Denies weakness or paralysis or loss of use of either side. Denies problems with gait or speech. Denies sensory loss, numbness, or tingling. Denies seizures. ALL OTHER SYSTEMS REVIEWED AND NEGATIVE. Dictation was performed using [employer] voice recognition software PHYSICAL EXAMINATION: GENERAL: Well-appearing, well-nourished child in no acute distress. HEAD: Atraumatic, normocephalic. EYES: Pupils equal round and reactive to light, extraocular movements intact, sclera anicteric, conjunctiva are normal. Tears noted ENT: Nares patent, oropharynx clear without exudates. Moist mucous membranes. NECK: Normal range of motion, supple without lymphadenopathy LUNGS: Breath sounds clear to auscultation bilaterally and equal. No wheezes rales or rhonchi. No retractions HEART: Regular rate and rhythm without murmurs ABDOMEN: Soft, nontender, nondistended abdomen. No guarding, no rebound. No masses appreciated. Musculoskeletal: Normal range of motion, no pitting or edema. No cyanosis. left upper arm pain with abduction and flexion. no pain with supination, pronation, extension. Kennel Keeper + 2 BUE equally. APROM in shoulder. DTR +2 in BUE equally. Noted crepitus with APROM in elbow. negative drop arm, neer sign, green test bilaterally. slightly positive impingement sign all on left. No vascular compromise. Neck with full APROM, no cervical spinal tenderness. No tenderness over clavicles or step off noted bilaterally. Strength 5 out of 5 in bilateral upper extremities equally. NEUROLOGICAL: Cranial nerves grossly intact. Normal speech, normal gait exam for age. Normal sensory, motor, and reflex exams. PSYCH: Normal mood, normal affect. SKIN: Warm, Dry, normal turgor, no rashes or lesions noted - REPRODUCTIVE Reproductive: DENIES: : - MUSCULOSKELETAL Musculoskeletal: REPORTS: Extremity pain - left arm Past Medical History - General Information source: Patient - Social History Smoking Status: Never Smoker Chew tobacco use (# tins/day): No Frequency of alcohol use: None Drug Abuse: None Family History: DM, Hypertension Patient has homicidal ideation: No - Past Medical History Cardiac Medical History: Reports: Hx Hypertension Endocrine Medical History: Reports: Hx Diabetes Mellitus Type 1, Hx Diabetes Mellitus Type 2 Renal/ Medical History: Denies: Hx Peritoneal Dialysis Psychiatric Medical History: Denies: Hx Depression Past Surgical History: Reports: Hx Hysterectomy Vertical Provider Document - CONSTITUTIONAL Agree With Documented VS: Yes Exam Limitations: No Limitations General Appearance: WD/WN - INFECTION CONTROL TRAVEL OUTSIDE OF THE [place] IN LAST 30 DAYS: No Course - Re-evaluation Re-evalutation: 05/06/20 12:24 Afebrile vital stable no distress. Nurses notes reviewed. Venous Doppler of left upper extremity negative for DVT, x-ray of left humerus negative for acute fracture dislocation or foreign body. Patient placed in a sling and given a sixpack of Purlear. Advised to follow-up with video specialist within the next 24 to 48 hours. Patient's been having this pain for the last 2 months, she does need further evaluation with an video specialist. Do not find any acute findings on today's evaluation. Patient is not complaining of any chest pain or shortness of breath, no focal neurological deficit on examination. After performing a Medical Screening Examination, I estimate there is LOW risk for OPEN FRACTURE, COMPARTMENT SYNDROME, DEEP VENOUS THROMBOSIS, ACUTE TENDON RUPTURE, or NEUROVASCULAR INJURY thus I consider the discharge disposition reasonable. I have reevaluated this patient multiple times and no significant life threatening changes are noted. The patient and I have discussed the diagnosis and risks, and we agree with discharging home to closely follow-up with their primary doctor or the referral orthopedist with the understanding that symptoms and presentations can change. We also discussed returning to the Emergency Department immediately if new or worsening symptoms occur. We have discussed the symptoms which are most concerning (e.g., changing or worsening pain, numbness, weakness) that necessitate immediate return - Vital Signs Vital signs: Temp Pulse Resp BP Pulse Ox 98.0 F 65 16 140/68 H 98 05/06/20 10:16 05/06/20 08:52 05/06/20 08:52 05/06/20 08:52 05/06/20 08:52 Discharge - Discharge Clinical Impression: Left upper arm pain Condition: Stable Disposition: HOME, SELF-CARE Instructions: Arm Pain, Nonspecific ([facility]) Additional Instructions: Your venous Doppler today was negative for any DVT, your x-ray today of your left upper arm is negative for any acute fracture dislocation or foreign body. please follow-up with video specialist, please call today to make an appointment today. Return immediately for any new or worsening symptoms. Con tinue to take your Mobic and [id number] Tylenol as needed. Alternate between Tylenol and heat for pain control. Follow up with primary care provider, call tomorrow to make followup appointment . Forms: Return to Work Referrals: EDEN GAITAN MD [Primary Care Provider] - Follow up tomorrow JOSEPHINE MONTERROSO DO [ACTIVE STAFF] - Follow up tomorrow
--- NOTE | 2020-05-06 11:12 | RADIOLOGY REPORT (SQ) ---
EXAM DESCRIPTION: HUMERUS LEFT IMAGES COMPLETED DATE/TIME: 05/06/2020 11:02 am REASON FOR STUDY: left upper arm pain x2m, worse in last 2 weeks COMPARISON: None. NUMBER OF VIEWS: Two views. TECHNIQUE: Two radiographic images were acquired of the left humerus to include elbow and shoulder i n at least one projection. LIMITATIONS: None. FINDINGS: MINERALIZATION: Normal. BONES: No acute fracture or dislocation. No worrisome bone lesions. No significant osteophytes. SOFT TISSUES: No obvious swelling or foreign body. OTHER: No other significant finding. IMPRESSION: NEGATIVE STUDY OF THE LEFT HUMERUS. NO RADIOGRAPHIC EVIDENCE OF ACUTE INJURY. NO EXPLANA TION FOR PAIN. TECHNICAL DOCUMENTATION: JOB ID: [id number] 2010 [employer]- All Rights Reserved Reading location - IP/workstation name: [email or web address]
[2020-05-06] MEDS ORDERED: HYDROCODONE/ACETAMINOPHEN 5-325 MG (6 TAB/ER DISP) PO PRN (12:23)
--- NOTE | 2020-05-06 12:24 | RADIOLOGY REPORT (SQ) ---
EXAM DESCRIPTION: VENOUS UNILATERAL UPPER IMAGES COMPLETED DATE/TIME: 05/06/2020 12:14 pm REASON FOR STUDY: left arm pain x 2m, worse over last year COMPARISON: None. TECHNIQUE: Dynamic and static sheets scale and color images acquired of the left arm venous system. Se lected spectral images acquired with additional compression and augmentation maneuvers. The contralat eral subclavian vein and internal jugular vein were also imaged. Images stored on PACS. LIMITATIONS: None. FINDINGS: INTERNAL JUGULAR VEIN: Normal phasicity, compression, augmentation. No visualized echogeni c material on sheets scale. No defects on color images. Comparison opposite side normal. SUBCLAVIAN VEIN: Normal compression, augmentation. No visualized echogenic material on sheets scale. No defects on color images. AXILLARY VEIN: Normal compression, augmentation. No visualized echogenic material on sheets scale. No d efects on color images. BRACHIAL VEIN: Normal compression, augmentation. No visualized echogenic material on sheets scale. No d efects on color images. BASILIC VEIN: Normal compression, augmentation. No visualized echogenic material on sheets scale. No de fects on color images. CEPHALIC VEIN: Normal compression, augmentation. No visualized echogenic material on sheets scale. No d efects on color images. OTHER: No other significant finding. CONTRALATERAL SUBCLAVIAN VEIN AND INTERNAL JUGULAR VEIN: Normal phasicity, compression and augmentation. No visualized echogenic material on sheets scale. No de fects on color images. IMPRESSION: NO EVIDENCE DVT OR SVT IN THE LEFT ARM. TECHNICAL DOCUMENTATION: JOB ID: [id number] 2010 [employer]- All Rights Reserved Reading location - IP/workstation name: [email or web address]
== END 2020-05-06 12:33 | disposition home or self-care (01) ==
LOC: ER 08:47
DX: M79.622 Pain in left upper arm (principal); E11.9 Type 2 diabetes mellitus without complications; I10 Essential (primary) hypertension; Z79.899 Other long term (current) drug therapy
CPT/HCPCS: 93971; 99284